=== PATIENT | male | born 1955 | race Caucasian/White ===

== ENCOUNTER 2017-03-17 16:32 | Outpatient (CLI) | payer OTHER ==
--- NOTE | 2017-03-17 20:58 | MRI Report ---
EXAM: MRI CERVICAL SPINE WITHOUT CONTRAST EXAM DATE: 03/17/2017 05:29 PM. CLINICAL HISTORY: CERVICAL DISC DISORDER AT C5-C6 LEVEL WITH RADICUL. Neck and right shoulder and arm pain. COMPARISONS: MRI cervical spine 04/10/2010 TECHNIQUE: Multiplanar, multisequence T1-weighted and fluid-sensitive sequences of the cervical spine without contrast. Other: None. FINDINGS: Neurologic Structures: The visualized posterior fossa structures are unremarkable. No signal abnormal ity in the visualized spinal cord. Alignment: Normal. No scoliosis or spondylolisthesis. Bone Marrow: No gross fractures or bone lesions. No marrow edema. 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 Interspace Levels/Facets: C1-C2: Unremarkable. C2-C3: No significant central canal or neuroforaminal narrowing. C3-C4: Mild diffuse disk bulge, slightly progressed since the prior study. Mild right facet arthropat hy and right-sided uncovertebral spurring. Mild central canal narrowing, slightly progressed. Mild ri ght neuroforaminal narrowing. No left neuroforaminal narrowing. C4-C5: Moderate diffuse disk bulge with superimposed right central disk protrusion. This moderately f lattens the cord with no definite cord signal abnormality. Mild bilateral uncovertebral spurring. Mil i-no-itxaafue bilateral facet arthropathy. Moderate to severe central canal narrowing, slightly progr essed. Mild bilateral neuroforaminal narrowing, slightly progressed. C5-C6: Moderate diffuse disk bulge with superimposed right subarticular/foraminal disk protrusion. Mo derate bilateral facet arthropathy. Zflg-[id number] bilateral uncovertebral spurring. Moderate to se mika central canal narrowing, slightly progressed. Moderate to severe right and mild left neuroforami nal narrowing. The neuroforaminal narrowing is similar to prior study. Recommend correlation with rig ht-sided C6 radicular symptoms. C6-C7: Mild diffuse disk bulge. Moderate bilateral facet arthropathy. Mild central canal narrowing. M oderate bilateral neuroforaminal narrowing. The central canal and the neuroforaminal narrowing have s lightly progressed since the prior study. Recommend correlation for bilateral C7 radicular symptoms. C7-T1: No significant central canal or neuroforaminal narrowing. Musculature: Normal. No edema or fatty atrophy. Other: The paravertebral and prevertebral soft tissues are normal. IMPRESSION: 1. Fljr-sj-diiacuwp multilevel degenerative spondylosis, as detailed above and summarized below. 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 Overall, this velasquez s slightly progressed since the prior study dated 04/10/2010, as detailed above. 2. No cord signal abnormality at any level. No evidence of fracture or bone marrow edema. 3. C3-C4 level demonstrates mild central canal narrowing, slightly progressed. Mild right neuroforami nal narrowing. No left neuroforaminal narrowing. 4. C4-C5 level demonstrates moderate to severe central canal narrowing, slightly progressed. Mild lizeth ateral neuroforaminal narrowing, slightly progressed. 5. C5-C6 level demonstrates moderate to severe central canal narrowing, slightly progressed. Moderate to severe right and mild left neuroforaminal narrowing. The neuroforaminal narrowing is similar to p rior study. Recommend correlation with right-sided C6 radicular symptoms. 6. C6-C7 level demonstrates mild central canal narrowing. Moderate bilateral neuroforaminal narrowing . The central canal and the neuroforaminal narrowing have slightly progressed since the prior study. Recommend correlation for bilateral C7 radicular symptoms. [facility] Referring Provider Line: [phone] SITE ID: [id number]
== END 2017-03-17 16:33 | disposition home or self-care (01) ==
LOC: DI 16:32
PROVIDERS: ATTEND Physician Assistant
DX: M50.31 Other cervical disc degeneration, high cervical region (principal); M47.892 Other spondylosis, cervical region
CPT/HCPCS: 72141

== ENCOUNTER 2017-09-22 09:08 | Outpatient (CLI) | payer OTHER | END 2017-09-22 09:09 | disposition home or self-care (01) | LOC: SC 09:08 | PROVIDERS: ATTEND Specialist | DX: G47.30 Sleep apnea, unspecified (principal); G47.00 Insomnia, unspecified; E66.9 Obesity, unspecified; Z68.31 Body mass index [BMI] 31.0-31.9, adult | CPT/HCPCS: 99205; 99212 ==

== ENCOUNTER 2018-08-14 00:04 | Emergency (ER) | payer OTHER ==
[2018-08-14] MEDS ORDERED: SODIUM CHLORIDE 0.9% 1,000 ML IV ONE (00:32)
[2018-08-14 00:43] LABS: BASOPHILS # (AUTO) 0.1 10^3/uL (0.0-0.1); BASOPHILS % (AUTO) 0.7 %; EOSINOPHILS # (AUTO) 0.2 10^3/uL (0.0-0.7); EOSINOPHILS % (AUTO) 2.1 %; HGB - HEMOGLOBIN 15.8 g/dL (14.0-18.0); LYMPHOCYTES # (AUTO) 2.4 10^3/uL (1.5-3.5); LYMPHOCYTES % (AUTO) 23.7 %; MEAN CORPUSCULAR HEMOGLOBIN 31.4 pg (27.0-31.0); MEAN CORPUSCULAR HGB CONC 35.5 g/dL (32.0-36.0); MEAN CORPUSCULAR VOLUME 88.6 fL (80.0-94.0); MEAN PLATELET VOLUME 7.5 fL (7.4-11.4); MONOCYTES % (AUTO) 10.1 %; NEUTROPHILS # (AUTO) 6.5 10^3/uL (1.5-6.6); NEUTROPHILS % (AUTO) 63.4 %; PLT - PLATELET COUNT 251 10^3/uL (130-450); RED BLOOD COUNT 5.02 10^6/uL (4.70-6.10); RED CELL DISTRIBUTION WIDTH 13.2 % (12.0-15.0); WHITE BLOOD COUNT 10.3 x10^3/uL (4.8-10.8)
[2018-08-14 00:56] LABS: ALBUMIN/GLOBULIN RATIO 1.3 (1.0-2.2); BILIRUBIN,TOTAL 0.5 mg/dL (0.2-1.0); TOTAL PROTEIN 7.1 g/dL (6.7-8.2)
[2018-08-14 00:59] LABS: BILIRUBIN,URINE NEGATIVE (NEGATIVE); GLUCOSE, URINE (UA) >=1000 mg/dL (NEGATIVE); KETONES,URINE (UA) NEGATIVE (NEGATIVE); LEUKOCYTE ESTERASE, URINE NEGATIVE (NEGATIVE); NITRITE,URINE NEGATIVE (NEGATIVE); OCCULT BLOOD,URINE LARGE (NEGATIVE); PH,URINE 5.5 PH (5.0-7.5); PROTEIN,URINE NEGATIVE (NEGATIVE); UROBILINOGEN,URINE 0.2 (NORMAL) E.U./dL (NORMAL)
[2018-08-14 01:05] LABS: CLARITY,URINE CLEAR (CLEAR)
[2018-08-14 01:06] LABS: BACTERIA,URINE None Seen /HPF (None Seen); SQUAMOUS EPITHELIAL CELL,UR NONE SEEN (<= Few)
[2018-08-14] MEDS ORDERED: IOPAMIDOL-300 100 ML VIAL ONE (01:07)
--- NOTE | 2018-08-14 01:17 | ED Physician Documentation ---
PD HPI ABD PAIN - Stated complaint Stated Complaint: LT SIDE PAIN - Chief complaint Chief Complaint: Abd Pain - History obtained from History obtained from: Patient - History of Present Illness Timing - onset: How many hours ago (5) Timing - details: Abrupt onset Quality: Pain Location: Other (left mid abdomen) Radiation: Left flank Associated symptoms: Nausea, Diarrhea (3 days ago.) Similar symptoms before: Has not had sx before - Additional information Additional information: The patient is a 63-year-old male who presents with left-sided abdominal pain that started about 5 hours prior to arrival and has persisted since that time. It was rather rapid in onset. He describes associated nausea, without vomiting. He denies fever but has had chills. He denies dysuria. He reports having diarrhea 3 days ago, but had a normal bowel movement earlier today. He denies history of similar symptoms in the past. Past medical history is significant for insulin-dependent diabetes. He started Trulicity 1 month ago, and thinks that his episodes of diarrhea are related to that medication. Review of Systems Constitutional: reports: Chills Nose: denies: Congestion Throat: denies: Sore throat Cardiac: denies: Chest pain / pressure Respiratory: denies: Dyspnea, Cough GI: reports: Abdominal Pain, Nausea, Diarrhea (three days ago.). denies: Vomiting : denies: Dysuria Skin: denies: Rash Musculoskeletal: reports: Back pain (mild left flank pain) Neurologic: denies: Focal weakness, Numbness, Headache PD PAST MEDICAL HISTORY - Past Medical History Cardiovascular: Hypertension, High cholesterol Respiratory: None Endocrine/Autoimmune: Type 2 diabetes GI: Colon polyps : Benign prostate hypertrophy, Frequency HEENT: Other Psych: None Musculoskeletal: Gout Derm: None - Past Surgical History General: Cholecystectomy, Colonoscopy Ortho: Rotator cuff repair - Present Medications Home Medications: Ambulatory Orders Medication Instructions Recorded Confirmed Aspirin [Pancho Chewable] 81 mg PO DAILY 12/17/15 12/17/15 Atorvastatin [Lipitor] 20 mg PO DAILY 12/17/15 12/18/15 Finasteride 5 mg PO DAILY 12/17/15 12/18/15 Lisinopril [Prinivil] 5 mg PO DAILY 12/17/15 12/18/15 Tamsulosin [Flomax] 0.4 mg PO DAILY 12/17/15 12/18/15 metFORMIN [Glucophage] 850 mg PO BIDWM 12/17/15 12/18/15 Oxycodone HCl/Acetaminophen 1 - 2 each PO Q6H PRN #14 tablet 08/14/18 [Percocet 5-325 mg Tablet] Tamsulosin [Flomax] 0.4 mg PO DAILY #7 capsule 08/14/18 - Allergies Allergies/Adverse Reactions: Allergies Allergy/AdvReac Type Severity Reaction Status Date / Time No Known Drug Allergies Allergy Verified 08/14/18 00:08 PD ED PE NORMAL - Vitals Vital signs reviewed: Yes (Initially hypertensive.) - General General: Alert and oriented X 3, Well developed/nourished - HEENT HEENT: Atraumatic, Moist mucous membranes, Pharynx benign - Neck Neck: Supple, no meningeal sign, No adenopathy - Cardiac Cardiac: RRR, No murmur - Respiratory Respiratory: No respiratory distress, Clear bilaterally - Abdomen Abdomen: Normal bowel sounds, Soft, No organomegaly, Other (Left mid abdominal tenderness to palpation, without rebound or guarding.) - Back Back: No CVA TTP, No spinal TTP - Derm Derm: No rash - Extremities Extremities: No edema, No calf tenderness / cord - Neuro Neuro: Alert and oriented X 3, Normal speech Results - Vitals Vitals: Vital Signs - 24 hr 08/14/18 08/14/18 00:08 02:23 Temperature 36.2 C L Heart Rate 88 85 Respiratory 20 16 Rate Blood Pressure 148/101 H 123/90 H O2 Saturation 97 94 Oxygen O2 Source Room air - Labs Labs: Laboratory Tests 08/14/18 08/14/18 08/14/18 00:25 00:40 00:40 WBC 10.3 RBC 5.02 Hgb 15.8 Hct 44.5 MCV 88.6 MCH 31.4 H MCHC 35.5 RDW 13.2 Plt Count 251 MPV 7.5 Neut # (Auto) 6.5 Lymph # (Auto) 2.4 [place] # (Auto) 1.0 Eos # (Auto) 0.2 Baso # (Auto) 0.1 Absolute Nucleated RBC 0.00 Nucleated RBC % 0.0 Sodium 134 L Potassium 3.7 Chloride 98 L Carbon Dioxide 27 Anion Gap 9.0 BUN 22 H Creatinine 1.0 Estimated GFR (MDRD) 76 L Glucose 295 H POC Whole Bld Glucose 279 H Calcium 9.0 Total Bilirubin 0.5 AST 22 ALT 32 Alkaline Phosphatase 69 Total Protein 7.1 Albumin 4.0 Globulin 3.1 Albumin/Globulin Ratio 1.3 Lipase 26 Urine Color Urine Clarity Urine pH Ur Specific [place] Urine Protein Urine Glucose (UA) Urine Ketones Urine Occult Blood Urine Nitrite Urine Bilirubin Urine Urobilinogen Ur Leukocyte Esterase Urine RBC Urine WBC Ur Squamous Epith Cells Urine Bacteria Ur Microscopic Review Urine Culture Comments 08/14/18 00:50 WBC RBC Hgb Hct MCV MCH MCHC RDW Plt Count MPV Neut # (Auto) Lymph # (Auto) [place] # (Auto) Eos # (Auto) Baso # (Auto) Absolute Nucleated RBC Nucleated RBC % Sodium Potassium Chloride Carbon Dioxide Anion Gap BUN Creatinine Estimated GFR (MDRD) Glucose POC Whole Bld Glucose Calcium Total Bilirubin AST ALT Alkaline Phosphatase Total Protein Albumin Globulin Albumin/Globulin Ratio Lipase Urine Color YELLOW Urine Clarity CLEAR Urine pH 5.5 Ur Specific [place] 1.025 Urine Protein NEGATIVE Urine Glucose (UA) >=1000 H Urine Ketones NEGATIVE Urine Occult Blood LARGE H Urine Nitrite NEGATIVE Urine Bilirubin NEGATIVE Urine Urobilinogen 0.2 (NORMAL) Ur Leukocyte Esterase NEGATIVE Urine RBC 11-25 H Urine WBC 0-3 Ur Squamous Epith Cells NONE SEEN Urine Bacteria None Seen Ur Microscopic Review INDICATED Urine Culture Comments NOT INDICATED - Rads (name of study) CT abd/pelvis w/o Radiology: Prelim report reviewed, EMP read contemporaneously, See rad report (1) Moderately obstructing 4 x 4 mm stone in the distal left ureter, about 1 cm above the ureteral 2) There are 2 nonobstructing left renal stones measuring up to 4 x 4 mm. 3) Fatty liver.) PD MEDICAL DECISION MAKING - ED course Complexity details: reviewed results, re-evaluated patient, considered differential, d/w patient ED course: The patient's presentation is most consistent with left ureteral stone with renal colic. CT scan of the abdomen and pelvis reveals a 4 mm stone in the left distal ureter. There is no clinical evidence to suggest pyelonephritis. Treatment in the emergency department included administration of normal saline IV. He declined medication for pain or nausea. He is being discharged with prescriptions for Flomax and for Percocet, 14 tablets. I discussed with him the expected course of illness, symptomatic treatment and outpatient follow-up, as well as potentially worrisome signs or symptoms that should prompt reevaluation in the emergency department. Departure - Departure Disposition: 01 Home, Self Care Clinical Impression: Left ureteral stone Condition: Stable Instructions: ED Stone Renal W Colic Follow-Up: ANIL KAMINSKI [Primary Care Provider] - Prescriptions: Oxycodone HCl/Acetaminophen [Percocet 5-325 mg Tablet] 1 - 2 each PO Q6H PRN #14 tablet PRN Reason: pain Tamsulosin [Flomax] 0.4 mg PO DAILY #7 capsule Comments: Drink plenty of fluids. Take Flomax daily as prescribed. Take ibuprofen, up to 800 mg 3 times daily for its anti-inflammatory effect. You can use Percocet as prescribed if needed for pain. Follow-up with your primary physician within 1 week. Call to schedule an appointment. Return to the emergency department if you develop increasing abdominal pain despite the pain medication, fever, persistent vomiting, or otherwise worsening symptoms. Discharge Date/Time: 08/14/18 02:24
--- NOTE | 2018-08-14 01:56 | CT Report ---
Reason: Left flank pain with hematuria Procedure Date: 08/14/2018 Accession Number: [id number] / [id number] Procedure: CT - Abdomen/Pelvis W/O CPT Code: FULL RESULT: EXAM: CT ABDOMEN AND PELVIS (CT KUB) EXAM DATE: 08/14/2018 01:40 AM. CLINICAL HISTORY: Left flank pain with hematuria. COMPARISONS: None. TECHNIQUE: Routine axial helical CT imaging was performed through the abdomen and pelvis without IV contrast. Reconstructions: Coronal and sagittal. In accordance with CT protocol optimization, one or more of the following dose reduction techniques were utilized for this exam: automated exposure control, adjustment of mA and/or KV based on patient size, or use of iterative reconstructive technique. FINDINGS: Lung Bases: Bibasilar atelectasis. Right Kidney/Ureter: No stones, hydronephrosis, or hydroureter. No perinephric fat stranding. Left Kidney/Ureter: There are 2 nonobstructing left renal stones measuring up to 4 x 4 mm. Moderately obstructing stone is seen in the distal ureter about 1 cm above the ureterovesical junction, measuring 4 x 4 mm. Other Solid Organs: Fatty liver. Spleen, pancreas, and adrenals show no focal abnormalities on this noncontrast examination. Gallbladder/Bile Ducts: Status post cholecystectomy. Peritoneal Cavity: No bowel obstruction seen. No diverticulitis. No free air or free fluid. Normal sized mesenteric lymph nodes. Appendix appears normal. Pelvic Organs: No bladder stones or wall thickening. Noncontrast images of the visualized pelvic organs are unremarkable. Vasculature: Mild atherosclerosis. No aortic aneurysm. Other: None. IMPRESSION: 1. Moderately obstructing 4 x 4 mm stone in the distal left ureter about 1 cm above the ureterovesical junction. 2. There are 2 nonobstructing left renal stones measuring up to 4 x 4 mm. 3. Fatty liver. [facility]
[2018-08-14 02:24] VITALS: BP 123/90
== END 2018-08-14 02:24 | disposition home or self-care (01) ==
LOC: ED 00:04
DX: N20.2 Calculus of kidney with calculus of ureter (principal); E11.9 Type 2 diabetes mellitus without complications; I10 Essential (primary) hypertension; Z79.82 Long term (current) use of aspirin; Z79.84 Long term (current) use of oral hypoglycemic drugs
CPT/HCPCS: 36415; 74176; 80053; 81001; 81003; 83690; 85025; 87086; 96360; 96361; 99283; 99284

== ENCOUNTER 2019-10-01 08:26 | Outpatient (CLI) | payer OTHER ==
[2019-10-01 09:07] VITALS: BP 120/70
--- NOTE | 2019-10-01 09:07 | SLEEP CARE CONSULTATION ---
Information from patient questionnaire entered by Angelique Moralez. I have reviewed and concur with the information entered by Angelique Moralez. This document represents the service I personally performed and the decisions made by me, Yoselin Benjamin, RN, MSN, [employer]. History of Present Illness Reason for Visit: New patient, Re-establish care, Other (last seen 2017) Chief Complaint: reports: Insomnia, Unrefreshed sleep, Snoring, Excessive daytime sleepiness, Observed pauses in breathing, Fatigue, Frequent awakenings at night Duration of Symptoms: many years Usual bedtime: 9-11pm Time it takes to fall asleep: 15-20 minutes Snores at night: Yes Observed to quit breathing while asleep: Yes Sleeps alone due to snoring: Yes Number of times waking at night: 2 Reasons for waking at night: reports: Bathroom, Other (rn medicare of son with aspergerns to check on if noises in night). denies: Choking, Snoring, Gasping for air, Pain Toss, Turn, or Twitch while sleeping: Yes Recalls having dreams: Yes (sometimes) Usually gets out of bed at: 5:30am Feels refreshed in the morning: No Morning headache: No Sleepy or fatigued during the day: Yes (sometimes) Ever fallen asleep while driving: Yes (brief closing of eyes, no accident, last occurred a month ago) Takes day naps: No Dreams during day naps: No Prior sleep studies: No - Parasomnia Symptoms Ever been unable to move upon waking from sleep: No Walks in sleep: No Talks in sleep: No Ever acted out dreams in sleep: Yes (many years ago from nightmares) Ever felt weak in the knees when startled or emotional: No Bothered by creepy, crawly, restless sensations in legs: Yes (diabetic neuropathy) Problems with memory or concentration: No Subjective Initial [place] Sleepiness Scale score: 8 Current [place] Sleepiness Scale score: 4 Past Medical History Past Medical History: reports: Hypertension, Diabetes (TURP, cholecystectomy, tonsillectomy. 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 Patient is and lives in [place]. Have you smoked in the past 12 months: No (never smoked ) Alcohol use: No Caffeine use: Yes Caffeine amount and frequency: 4- 5 diet caffienated sodas a day Family History Family history of sleep disordered breathing: Yes Family Hx Sleep Apnea: Father: Snoring Allergies and Home Medications Known drug allergies: No Home medication list reviewed: Yes Allergy and home medication list: lisinopril daily atorvastain daily Lantus insulin daily Metformin daily myrbetriq daily Review of Systems Cardiovascular: reports: high blood pressure. denies: palpitations, chest pain, irregular heart rate or pulse, leg or foot swelling, have to sleep sitting up Respiratory: denies: shortness of breath, wheeze, sputum production, chronic cough Gastrointestinal: denies: heartburn, difficulty swallowing, nausea, vomitting, diarrhea, abdominal pain Urinary: denies: incontinence, frequency, urgency, impotence Neurological: denies: headaches, seizure, head trauma, disorientation, speech dysfunction, gait or balance problems, fainting or unconsciousness Psychiatric: reports: claustrophobia (MRI ). denies: Attention Deficit Hyperactivity, anxiety, depression, mood disorder, other Ear/Nose/Throat: reports: nasal congestion, sinus problems, dry mouth/throat (sometimes ), tonsillectomy, wisdom teeth removed, other (no surgery to nose mouth or throat). denies: nose bleeds, hoarseness, injury to nose Endocrine: denies: thyroid disease, history of goiter, sluggishness, too hot or cold, excessive thirst, increased appetite, increased urination, unexplained weakness Musculoskeletal: denies: joint pain, neck pain, back pain, joint swelling, muscle pain or cramping, mobility problems Immunologic: denies: sneezing, rash, itching, allergies to food or environment, other Physical Exam Blood Pressure: 120/70 Cuff size: regular Heart Rate: 86 O2 Saturation: 97 Height: 6 ft 1.75 in Weight: 238 lb 6.4 oz Body Mass Index: 30.8 BMI Classification: Obesity Class 1 HEENT: No craniofacial malformation Nostrils: partially obstructed (left due to deviated septum and nasal congestion) Turbinates: normal Septum: deviated left Mouth and throat: narrow oropharynx Soft palate: long Hard palate: normal Uvula: normal Uvula visualization: 25% Mallampati Class III Tongue: normal in size Tonsils: absent bilaterally Chin and jaw: Overjet Neck: normal w/o lymphadenopathy or thyromegaly Heart: regular rate and rhythm Lungs: clear bilaterally Abdomen: soft Extremities: no edema or clubbing Neurologic: intact (grossly intact) Impression and Plan 1. Suspected Obstructive Sleep Apnea-Hypopnea Syndrome, as suggested by a history of loud and irregular snoring, observed cessation of breath while asleep, frequent awakening during the night, unrefreshed sleep, and intermittent excessive daytime sleepiness. Narrow oropharynx and obesity are common predisposing factors for obstructive sleep apnea-hypopnea syndrome. His overjet could also increase his risk of obstructive sleep apnea. Essential hypertension could also be caused by untreated sleep apnea. As noted in history, patient was seen in consultation in 2017 and a sleep study ordered but not completed. 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 A message and letter were sent to patient to reschedule but he does not recall these. Patient 's symptoms continue and he would like to pursue further evaluation. I recommend proceeding to polysomnography to confirm the diagnosis and to assess severity. If the patient has significant sleep disordered breathing, a manual CPAP titration study will also be performed to find the optimal treatment pressure. I informed the patient of what the sleep studies involve and after some discussion, obtained agreement to proceed. The pathophysiology of obstructive sleep apnea-hypopnea syndrome was discussed with the patient and health risks of cardiovascular and cerebrovascular disease if not treated. AASM brochure for obstructive sleep apnea-hypopnea syndrome given and reviewed. Risks of drowsy driving discussed in detail and patient advised to avoid long distance driving and to cable puller at the first sign of drowsiness. Patient agreed to plan. * Schedule polysomnography +- manual CPAP titration study * Avoid long distance driving or driving when feeling sleepy. * Avoid alcohol, sedative and muscle relaxant around bedtime. * Attempt to lose weight. * Review instructions provided by trained office staff on how to prepare for the sleep study. * Return for follow-up after sleep study completed. I spent 100% of this 27 visit face to face with the patient with greater than 50% of this was spent time counseling the patient and coordination of care.
== END 2019-10-01 08:27 | disposition home or self-care (01) ==
LOC: SC 08:26
PROVIDERS: ATTEND Nurse Practitioner Family
DX: R06.83 Snoring (principal); R06.81 Apnea, not elsewhere classified; G47.8 Other sleep disorders; G47.10 Hypersomnia, unspecified; E66.9 Obesity, unspecified; Z68.30 Body mass index [BMI] 30.0-30.9, adult
CPT/HCPCS: 99212; 99214

== ENCOUNTER 2019-10-16 04:06 | Emergency (ER) | payer OTHER ==
[2019-10-16 04:16] VITALS: BP 148/95
[2019-10-16] MEDS ORDERED: DEXAMETHASONE 10 MG/ML VIAL PO STA (04:31)
[2019-10-16] MEDS ORDERED: CHERRY SYRUP 10 ML UDC PO ONE (04:31)
[2019-10-16] MEDS ORDERED: KETOROLAC 60 MG/2 ML VIAL IM STA (04:31)
--- NOTE | 2019-10-16 04:34 | ED Physician Documentation ---
PD HPI UPPER EXT INJURY - Stated complaint Stated Complaint: RT ARM PX - Chief complaint Chief Complaint: Ext Problem - History obtained from History obtained from: Patient - History of Present Illness Location: Right, Arm Type of injury: Other (pulling) Where injury occurred: Home Timing - onset: How many days ago (3) Timing - duration: Days (3) Timing - details: Abrupt onset, Still present Improved by: Rest, Immobilization Worsened by: Moving, Palpating Associated symptoms: Numbness. No: Weakness, Tingling, Swelling, Discolored Contributing factors: No: Anticoagulated, Prior ortho surgery Similar symptoms before: Diagnosis (cervical radiculopathy) Recently seen: Not recently seen - Additonal information Additional information: Previously well 64-year-old gentleman with a history of type 2 diabetes hypercholesterolemia and hypertension was assisting his [id number] up and strained his right arm. He complains of pain through the right shoulder and up into the neck on the right side with some numbness to the dorsum of the right hand. He is having some trouble lifting his arm secondary to pain in the arm and he is able to hold the arm in abduction. He states he is had this happen to him previously required some physical therapy. Review of Systems Constitutional: denies: Fever, Chills, Myalgias Eyes: denies: Decreased vision Ears: denies: Ear pain Nose: denies: Rhinorrhea / runny nose, Congestion Throat: denies: Dental pain / toothache Cardiac: denies: Chest pain / pressure Respiratory: denies: Dyspnea, Cough GI: denies: Abdominal Pain, Vomiting : denies: Dysuria, Frequency Musculoskeletal: reports: Neck pain, Extremity pain. denies: Back pain Neurologic: reports: Numbness. denies: Generalized weakness, Focal weakness PD PAST MEDICAL HISTORY - Past Medical History Cardiovascular: Hypertension, High cholesterol Respiratory: None Endocrine/Autoimmune: Type 2 diabetes GI: Colon polyps : Benign prostate hypertrophy, Frequency HEENT: Other Psych: None Musculoskeletal: Gout Derm: None - Past Surgical History General: Cholecystectomy, Colonoscopy Ortho: Rotator cuff repair - Present Medications Home Medications: Ambulatory Orders Medication Instructions Recorded Confirmed Aspirin [Pancho Chewable] 81 mg PO DAILY 12/17/15 10/16/19 Atorvastatin [Lipitor] 20 mg PO DAILY 12/17/15 10/16/19 Finasteride 5 mg PO DAILY 12/17/15 10/16/19 Lisinopril [Prinivil] 5 mg PO DAILY 12/17/15 10/16/19 metFORMIN [Glucophage] 850 mg PO BIDWM 12/17/15 10/16/19 Cyclobenzaprine [Flexeril] 10 mg PO TID PRN #20 tablet 10/16/19 Exenatide Microspheres [Bydureon 10/16/19 Pen] Hydrocodone/Acetaminophen 1 - 2 each PO Q6H PRN #14 tablet 10/16/19 [Hydrocodon-Acetaminophen 5-325] Insulin Glargine [Lantus Solostar] 55 units SUBQ DAILY PM 10/16/19 10/16/19 Mirabegron [Myrbetriq] 25 mg PO 10/16/19 - Allergies Allergies/Adverse Reactions: Allergies Allergy/AdvReac Type Severity Reaction Status Date / Time No Known Drug Allergies Allergy Verified 08/14/18 00:08 - Social History Does the pt smoke?: No Smoking Status: Never smoker Does the pt drink ETOH?: No Does the pt have substance abuse?: No - Immunizations Immunizations are current?: Yes - POLST Patient has POLST: No PD ED PE NORMAL - Vitals Vital signs reviewed: Yes (hypertensive ) - General General: Alert and oriented X 3, No acute distress, Well developed/nourished - HEENT HEENT: Atraumatic, PERRL, EOMI - Neck Neck: Supple, no meningeal sign, No bony TTP, Other (There is some paraspinous muscle tenderness to the area of C5. There is palpable pain into the trapezius over the insertion of the spinal accessory. ) - Respiratory Respiratory: No respiratory distress - Derm Derm: Normal color, Warm and dry, No rash - Extremities Extremities: No deformity, No edema, Other (There is point tenderness to the anterior deltoid and pain with movement of the arm there is pain with both passive and active movement more pain with active movement and the patient is able to hold the arm in extension. He is able to hold the arm in abduction. There is pain at the insertion of the biceps tendon proximally. Distal neurovascular components are intact the patient has some subjective numbness over the dorsum of the hand.) - Neuro Neuro: Alert and oriented X 3, roller print tender 2-12 intact, No motor deficit Eye Opening: Spontaneous Motor: Obeys Commands Verbal: Oriented GCS Score: 15 - Psych Psych: Normal mood, Normal affect Results - Vitals Vitals: Vital Signs - 24 hr 10/16/19 04:14 Temperature 36.1 C L Heart Rate 84 Respiratory 16 Rate Blood Pressure 148/95 H O2 Saturation 97 Oxygen O2 Source Room air PD MEDICAL DECISION MAKING - ED course Complexity details: reviewed old records, re-evaluated patient, considered differential, d/w patient ED course: 64-year-old male with pain radiating from his neck down to his hand and decreased use of his right arm secondary to pain in the upper arm appears to have strained his arm he may, or may not have some component of cervical radiculopathy. He feels certain this is similar to what he had previously with cervical radiculopathy and he is treated with dexamethasone 10 mg orally and Toradol [address] will place him on some hydrocodone and Flexeril and have him follow-up with his primary for further evaluation as needed. Departure - Departure Disposition: 01 Home, Self Care Clinical Impression: Cervical radiculopathy Strain of right upper arm Qualifiers: Encounter type: initial encounter Qualified Code(s): S46.911A - Strain of unspecified muscle, fascia and tendon at shoulder and upper arm level, right arm, initial encounter Condition: Stable Instructions: ED Cervical Radiculopathy, ED Strain Muscle Ext Follow-Up: MARK Renee [Provider Group] Prescriptions: Cyclobenzaprine [Flexeril] 10 mg PO TID PRN #20 tablet PRN Reason: Spasms Hydrocodone/Acetaminophen [Hydrocodon-Acetaminophen 5-325] 1 - 2 each PO Q6H PRN #14 tablet PRN Reason: pain
== END 2019-10-16 04:45 | disposition home or self-care (01) ==
LOC: ED 04:06
DX: M54.12 Radiculopathy, cervical region (principal); S46.911A Strain of unspecified muscle, fascia and tendon at shoulder and upper arm level, right arm, initial encounter; X50.0XXA Overexertion from strenuous movement or load, initial encounter; Y93.F2 Activity, caregiving, lifting; Y92.009 Unspecified place in unspecified non-institutional (private) residence as the place of occurrence of the external cause; I10 Essential (primary) hypertension; E11.9 Type 2 diabetes mellitus without complications; Z79.4 Long term (current) use of insulin
CPT/HCPCS: 96372; 99283; 99284; A9270

== ENCOUNTER 2019-10-20 01:19 | Emergency (ER) | payer OTHER ==
--- NOTE | 2019-10-20 01:51 | ED Physician Documentation ---
History of Present Illness - Stated complaint Stated Complaint: R ARM PAIN - Chief complaint Chief Complaint: Ext Problem - History obtained from History obtained from: Patient - History of Present Illness Timing: How many days ago (4-5) Pain level now: 6 Improved by: rest Worsened by: movement involving right shoulder, turning neck - Additonal information Additional information: c/o 4-5 days of RUE pain. no definite injury, although he thinks it might be related to when he caught his father to stop him from falling several days ago. c/o pain right neck that radiates down RUE to hand. he says he has had similar symptoms before diagnosed as cervical radiculopathy. he also was T+R few days ago from this ED for these symptoms, had good symptomatic relief with decadron and toradol. however, pain gradually returned and worsened and is unrelieved with the prescribed flexeril and vicodin Review of Systems Constitutional: reports: Reviewed and negative Cardiac: denies: Chest pain / pressure Musculoskeletal: reports: Neck pain, Extremity pain. denies: Extremity swelling, Joint swelling Neurologic: denies: Focal weakness, Numbness PD PAST MEDICAL HISTORY - Past Medical History Cardiovascular: Hypertension, High cholesterol Respiratory: None Endocrine/Autoimmune: Type 2 diabetes GI: Colon polyps : Benign prostate hypertrophy, Frequency HEENT: Other Psych: None Musculoskeletal: Gout Derm: None - Past Surgical History Past Surgical History: Yes General: Cholecystectomy, Colonoscopy Ortho: Rotator cuff repair - Present Medications Home Medications: Ambulatory Orders Medication Instructions Recorded Confirmed Aspirin [Pancho Chewable] 81 mg PO DAILY 12/17/15 10/16/19 Atorvastatin [Lipitor] 20 mg PO DAILY 12/17/15 10/16/19 Finasteride 5 mg PO DAILY 12/17/15 10/16/19 Lisinopril [Prinivil] 5 mg PO DAILY 12/17/15 10/16/19 metFORMIN [Glucophage] 850 mg PO BIDWM 12/17/15 10/16/19 Cyclobenzaprine [Flexeril] 10 mg PO TID PRN #20 tablet 10/16/19 Exenatide Microspheres [Bydureon 10/16/19 Pen] Hydrocodone/Acetaminophen 1 - 2 each PO Q6H PRN #14 tablet 10/16/19 [Hydrocodon-Acetaminophen 5-325] Insulin Glargine [Lantus Solostar] 55 units SUBQ DAILY PM 10/16/19 10/16/19 Mirabegron [Myrbetriq] 25 mg PO 10/16/19 Oxycodone HCl/Acetaminophen 1 - 2 each PO Q6H PRN #14 tablet 10/20/19 [Percocet 5-325 mg Tablet] diazePAM [Valium] 5 - 10 mg PO TID PRN #15 tablet 10/20/19 predniSONE [Prednisone] 40 mg PO DAILY 3 Days #6 tablet 10/20/19 - Allergies Allergies/Adverse Reactions: Allergies Allergy/AdvReac Type Severity Reaction Status Date / Time No Known Drug Allergies Allergy Verified 10/20/19 01:29 - Social History Does the pt smoke?: No Smoking Status: Never smoker Does the pt drink ETOH?: No Does the pt have substance abuse?: No - Immunizations Immunizations are current?: Yes - POLST Patient has POLST: No PD ED PE NORMAL - Vitals Vital signs reviewed: Yes - General General: Alert and oriented X 3, No acute distress (NAD at rest with RUE in adduction, but obvious painful discomfort with movement away from this position (of RUE)), Well developed/nourished - Neck Neck: Supple, no meningeal sign, No bony TTP - Respiratory Respiratory: No respiratory distress, Clear bilaterally - Back Back: No spinal TTP - Derm Derm: No rash - Extremities Extremities: No deformity, No tenderness to palpate, No edema - Neuro Neuro: No motor deficit, No sensory deficit PD ED PE EXPANDED - Extremities Extremities: Tenderness (mild TTP lateral aspect of right shoulder as well as anterior aspect at AC joint), Limited ROM Results - Vitals Vitals: Oxygen O2 Source Room air PD MEDICAL DECISION MAKING - ED course Complexity details: reviewed old records, considered differential, d/w patient ED course: we discussed testing, particularly xrays to assess for calcific tendinits or pathologic fracture. these are not likely diagnoses and would not change emergent management of the discomfort; additionally, he has had these symptoms before (few years ago) with diagnosis of cervical radiculopathy, making alternative diagnoses less likely. we agreed testing can be deferred until outpatient f/u or if symptoms worsen (in which case he can return to ED) Departure - Departure Disposition: 01 Home, Self Care Clinical Impression: Cervical radiculopathy Condition: Good Instructions: ED Cervical Radiculopathy Follow-Up: KEHINDE MARTIN ARNP [Primary Care Provider] - (Call to arrange for next available appointment) Prescriptions: diazePAM [Valium] 5 - 10 mg PO TID PRN #15 tablet PRN Reason: Spasms Oxycodone HCl/Acetaminophen [Percocet 5-325 mg Tablet] 1 - 2 each PO Q6H PRN #14 tablet PRN Reason: pain predniSONE [Prednisone] 40 mg PO DAILY 3 Days #6 tablet Comments: You can try the oxycodone/acetaminophen IN PLACE OF the hydrocodone/acetaminophen, and the diazepam IN PLACE OF the cyclobenzaprine. Discharge Date/Time: 10/20/19 03:25
[2019-10-20] MEDS ORDERED: DEXAMETHASONE 10 MG/ML VIAL PO STA (02:46)
[2019-10-20] MEDS ORDERED: KETOROLAC 60 MG/2 ML VIAL IM STA (02:46)
[2019-10-20] MEDS ORDERED: CHERRY SYRUP 10 ML UDC PO ONE (02:46)
[2019-10-20] MEDS ORDERED: oxyCODONE/ACET 5/325 Prepack 4 PO STA (02:47)
[2019-10-20 03:16] VITALS: BP 150/94
== END 2019-10-20 03:25 | disposition home or self-care (01) ==
LOC: ED 01:19
DX: M54.12 Radiculopathy, cervical region (principal); I10 Essential (primary) hypertension; E11.9 Type 2 diabetes mellitus without complications; Z79.4 Long term (current) use of insulin; Z79.82 Long term (current) use of aspirin
CPT/HCPCS: 96372; 99283; 99284; A9270

== ENCOUNTER 2019-10-24 00:31 | Emergency (ER) | payer OTHER ==
[2019-10-24] MEDS ORDERED: TRIAMCINOLONE 40 MG/ML VIAL IM STA (01:36)
[2019-10-24] MEDS ORDERED: ACETAMINOPHEN 325 MG TABLET PO STA (01:36)
[2019-10-24] MEDS ORDERED: LIDOCAINE 2% 10 ML MDV SUBQ STA (01:36)
[2019-10-24] MEDS ORDERED: KETOROLAC 60 MG/2 ML VIAL IM STA (01:36)
--- NOTE | 2019-10-24 02:06 | ED Physician Documentation ---
PD HPI UPPER EXT INJURY - Stated complaint Stated Complaint: ARM PX - Chief complaint Chief Complaint: Heent - History obtained from History obtained from: Patient - History of Present Illness Location: Right, Shoulder, Other (neck) Type of injury: Twist (he says he caught his father from falling and had a pull/twist of the shoulder and neck muscles. Has had pain in right side neck and shoulder girdle develop after that and continue. Improved with Toradol in ER and Rx meds somewhat but hurts again after a day or so. PO meds not helping.). No: Fall Timing - onset: How many days ago (10) Timing - duration: Days (10) Timing - details: Gradual onset, Still present, Waxing and waning Improved by: No: Rest (still hurts when resting arm, but feels best of it when just lying down with arm at side.) Worsened by: Moving, Palpating Associated symptoms: No: Weakness, Numbness, Swelling Similar symptoms before: Diagnosis (he says feels similar to "pinched nerve" in neck but does have pain with ROM of the shoulder now as well.) Recently seen: Emergency Dept (seen in ER twice with Toradol and steroids as well as oxycodone Rx, 5 mg tabs. has appt with PMD in couple days.) Review of Systems Constitutional: denies: Fever, Chills, Myalgias Nose: denies: Rhinorrhea / runny nose, Congestion Throat: denies: Sore throat Respiratory: denies: Cough Skin: denies: Rash, Lesions Musculoskeletal: reports: Neck pain, Joint pain (right shoulder) Neurologic: denies: Focal weakness, Numbness PD PAST MEDICAL HISTORY - Past Medical History Past Medical History: Yes Cardiovascular: Hypertension, High cholesterol Respiratory: None Neuro: None Endocrine/Autoimmune: Type 2 diabetes GI: Colon polyps : Benign prostate hypertrophy, Frequency HEENT: Other Psych: None Musculoskeletal: Gout Derm: None - Past Surgical History Past Surgical History: Yes General: Cholecystectomy, Colonoscopy Ortho: Rotator cuff repair - Present Medications Home Medications: Ambulatory Orders Medication Instructions Recorded Confirmed Aspirin [Pancho Chewable] 81 mg PO DAILY 12/17/15 10/16/19 Atorvastatin [Lipitor] 20 mg PO DAILY 12/17/15 10/16/19 Finasteride 5 mg PO DAILY 12/17/15 10/16/19 Lisinopril [Prinivil] 5 mg PO DAILY 12/17/15 10/16/19 metFORMIN [Glucophage] 850 mg PO BIDWM 12/17/15 10/16/19 Cyclobenzaprine [Flexeril] 10 mg PO TID PRN #20 tablet 10/16/19 Exenatide Microspheres [Bydureon 10/16/19 Pen] Hydrocodone/Acetaminophen 1 - 2 each PO Q6H PRN #14 tablet 10/16/19 [Hydrocodon-Acetaminophen 5-325] Insulin Glargine [Lantus Solostar] 55 units SUBQ DAILY PM 10/16/19 10/16/19 Mirabegron [Myrbetriq] 25 mg PO 10/16/19 Oxycodone HCl/Acetaminophen 1 - 2 each PO Q6H PRN #14 tablet 10/20/19 [Percocet 5-325 mg Tablet] diazePAM [Valium] 5 - 10 mg PO TID PRN #15 tablet 10/20/19 predniSONE [Prednisone] 40 mg PO DAILY 3 Days #6 tablet 10/20/19 Naproxen 375 mg PO BID #20 tablet 10/24/19 Oxycodone HCl/Acetaminophen 1 each PO Q4H PRN #20 tablet 10/24/19 [Percocet 7.5-325 mg Tablet] - Allergies Allergies/Adverse Reactions: Allergies Allergy/AdvReac Type Severity Reaction Status Date / Time No Known Drug Allergies Allergy Verified 10/24/19 00:49 - Social History Does the pt smoke?: No Smoking Status: Never smoker Does the pt drink ETOH?: No Does the pt have substance abuse?: No - Immunizations Immunizations are current?: Yes - POLST Patient has POLST: No PD ED PE NORMAL - Vitals Vital signs reviewed: Yes - General General: Alert and oriented X 3, No acute distress, Well developed/nourished - Neck Neck: Supple, no meningeal sign, No bony TTP (some tender in muscles adjacent to upper thoracic, about level of T2-3, without rash nor sores. ), No adenopathy - Cardiac Cardiac: RRR, No murmur - Respiratory Respiratory: Clear bilaterally - Derm Derm: Normal color, Warm and dry, No rash - Extremities Extremities: Other (right shoulder tender anteriorly. Limited ROM due to pain at shoulder - mostly abduction, extension and internal/external rotation. ) - Neuro Neuro: Alert and oriented X 3, No motor deficit, No sensory deficit, Normal speech Results - Vitals Vitals: Vital Signs - 24 hr 10/24/19 10/24/19 10/24/19 00:41 01:52 02:40 Temperature 36.4 C L Heart Rate 94 81 Respiratory 17 17 17 Rate Blood Pressure 149/98 H 134/87 H O2 Saturation 96 99 Oxygen O2 Source Room air PD MEDICAL DECISION MAKING - ED course Complexity details: reviewed old records, considered differential (tried local injection at anterior shoulder muscles at point of tenderness. Sounds like some rotator cuff and could be nerve pain too, but is tender in shoulder and pain on ROM. ), d/w patient Departure - Departure Disposition: Home, Self Care Clinical Impression: Cervical radiculopathy Right shoulder strain Qualifiers: Encounter type: subsequent encounter Qualified Code(s): S46.911D - Strain of unspecified muscle, fascia and tendon at shoulder and upper arm level, right arm, subsequent encounter Condition: Stable Record reviewed to determine appropriate education?: Yes Instructions: ED Cervical Radiculopathy, ED Tendinitis Rotator Cuff Follow-Up: KEHINDE MARTIN ARNP [Primary Care Provider] - Prescriptions: Naproxen 375 mg PO BID #20 tablet Oxycodone HCl/Acetaminophen [Percocet 7.5-325 mg Tablet] 1 each PO Q4H PRN #20 tablet PRN Reason: Pain Comments: Use the sling periodically to reduce strain on the shoulder and try to improve that portion of the injury. Gentle range of motion of the shoulder several times a day however so does not stiffen up on you. When rested, you can have the arm in the best position of comfort. Use some anti-inflammatories such as naproxen or ibuprofen twice daily. Add the oxycodone every 4-6 hours if needed for pain. I did a local injection with triamcinolone and lidocaine in the right anterior shoulder to try to help with some presumed rotator cuff tendinitis. Follow-up with your primary care regarding physical therapy for the shoulder and neck as there can be some element of "pinched nerve" as well. Discharge Date/Time: 10/24/19 02:46
[2019-10-24 02:46] VITALS: BP 134/87
== END 2019-10-24 02:46 | disposition home or self-care (01) ==
LOC: ED 00:31
DX: M54.12 Radiculopathy, cervical region (principal); S46.911A Strain of unspecified muscle, fascia and tendon at shoulder and upper arm level, right arm, initial encounter; X50.0XXA Overexertion from strenuous movement or load, initial encounter; Y93.F2 Activity, caregiving, lifting; I10 Essential (primary) hypertension; E11.9 Type 2 diabetes mellitus without complications; Z79.4 Long term (current) use of insulin
CPT/HCPCS: 20552; 96372; 99283; 99284; A9270

== ENCOUNTER 2019-10-27 01:28 | Emergency (ER) | payer OTHER ==
--- NOTE | 2019-10-27 01:29 | ED Physician Documentation ---
History of Present Illness - Stated complaint Stated Complaint: RT SHOULDER PAIN - Chief complaint Chief Complaint: Trauma Ext - History obtained from History obtained from: Patient (Patient is a 64-year-old male who presents with a chief complaint of right shoulder pain the patient reports he has been here multiple times before his right shoulder pain he gets a shot of Toradol he denies any new traumas or falls he denies any chest pain or shortness of breath.) Review of Systems Constitutional: reports: Reviewed and negative Eyes: reports: Reviewed and negative Ears: reports: Reviewed and negative Nose: reports: Reviewed and negative Throat: reports: Reviewed and negative Cardiac: reports: Reviewed and negative Respiratory: reports: Reviewed and negative GI: reports: Reviewed and negative : reports: Reviewed and negative Skin: reports: Reviewed and negative Musculoskeletal: reports: Extremity pain, Joint pain Neurologic: reports: Reviewed and negative Psychiatric: reports: Reviewed and negative Endocrine: reports: Reviewed and negative Immunocompromised: reports: Reviewed and negative PD PAST MEDICAL HISTORY - Past Medical History Cardiovascular: Hypertension, High cholesterol Respiratory: None Neuro: None Endocrine/Autoimmune: Type 2 diabetes GI: Colon polyps : Benign prostate hypertrophy, Frequency HEENT: Other Psych: None Musculoskeletal: Gout Derm: None - Past Surgical History Past Surgical History: Yes General: Cholecystectomy, Colonoscopy Ortho: Rotator cuff repair - Present Medications Home Medications: Ambulatory Orders Medication Instructions Recorded Confirmed Aspirin [Pancho Chewable] 81 mg PO DAILY 12/17/15 10/16/19 Atorvastatin [Lipitor] 20 mg PO DAILY 12/17/15 10/16/19 Finasteride 5 mg PO DAILY 12/17/15 10/16/19 Lisinopril [Prinivil] 5 mg PO DAILY 12/17/15 10/16/19 metFORMIN [Glucophage] 850 mg PO BIDWM 12/17/15 10/16/19 Cyclobenzaprine [Flexeril] 10 mg PO TID PRN #20 tablet 10/16/19 Exenatide Microspheres [Bydureon 10/16/19 Pen] Hydrocodone/Acetaminophen 1 - 2 each PO Q6H PRN #14 tablet 10/16/19 [Hydrocodon-Acetaminophen 5-325] Insulin Glargine [Lantus Solostar] 55 units SUBQ DAILY PM 10/16/19 10/16/19 Mirabegron [Myrbetriq] 25 mg PO 10/16/19 Oxycodone HCl/Acetaminophen 1 - 2 each PO Q6H PRN #14 tablet 10/20/19 [Percocet 5-325 mg Tablet] diazePAM [Valium] 5 - 10 mg PO TID PRN #15 tablet 10/20/19 predniSONE [Prednisone] 40 mg PO DAILY 3 Days #6 tablet 10/20/19 Naproxen 375 mg PO BID #20 tablet 10/24/19 Oxycodone HCl/Acetaminophen 1 each PO Q4H PRN #20 tablet 10/24/19 [Percocet 7.5-325 mg Tablet] - Allergies Allergies/Adverse Reactions: Allergies Allergy/AdvReac Type Severity Reaction Status Date / Time No Known Drug Allergies Allergy Verified 10/24/19 00:49 - Social History Does the pt smoke?: No Smoking Status: Never smoker Does the pt drink ETOH?: No Does the pt have substance abuse?: No - Immunizations Immunizations are current?: Yes - POLST Patient has POLST: No PD ED PE NORMAL - Vitals Vital signs reviewed: Yes - General General: Alert and oriented X 3, No acute distress - HEENT HEENT: PERRL - Neck Neck: Supple, no meningeal sign - Cardiac Cardiac: RRR, No murmur - Respiratory Respiratory: Clear bilaterally - Abdomen Abdomen: Normal bowel sounds, Soft, Non tender, Non distended - Derm Derm: Warm and dry - Extremities Extremities: No deformity, No edema, No calf tenderness / cord, Other (The right upper extremity is tender to palpation diffusely over the shoulder joint as well as the AC joint he has decreased range of motion of the right upper extremity he arrives with his shoulder in a sling there is no gross deformity his sensations intact over the lateral deltoid his radian, median, ulnar and motor and sensory exam are intact 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 refill is less than 2 seconds his radial pulses are 2+ and symmetric.) - Neuro Neuro: Alert and oriented X 3 - Psych Psych: Normal mood, Normal affect Results - Vitals Vitals: Vital Signs - 24 hr 10/27/19 10/27/19 01:34 01:55 Temperature 36.3 C L Heart Rate 78 Respiratory 18 17 Rate Blood Pressure 146/98 H O2 Saturation 98 Oxygen O2 Source Room air PD MEDICAL DECISION MAKING - ED course Complexity details: other (Patient reports that he is scheduled for an outpatient MRI next week he reports previously has been seen and being given an IM injection with Toradol and that improves the symptoms will provide him with 1 intramuscular injection of Toradol he reports he is never had a x-ray of his right upper extremity and right shoulder this point we did order a right shoulder x-ray which should be done prior to right shoulder MR I it is unrema rkable there is no acute fracture dislocation all of this was discussed with the patient and the patient was reexamined he reports that the symptoms have improved and he like to be discharged home.) Departure - Departure Disposition: 01 Home, Self Care Clinical Impression: Shoulder injury Qualifiers: Encounter type: subsequent encounter Laterality: right Qualified Code(s): S49.91XD - Unspecified injury of right shoulder and upper arm, subsequent encounter Instructions: ED Strain Muscle Ext Follow-Up: KEHINDE MARTIN ARNP [Primary Care Provider] -
[2019-10-27 01:38] VITALS: BP 146/98
[2019-10-27] MEDS ORDERED: KETOROLAC 30 MG/ML VIAL IM STA (01:43)
--- NOTE | 2019-10-27 02:18 | XRAY Report ---
Reason: right shoulder pain Procedure Date: 10/27/2019 Accession Number: [id number] / [id number] Procedure: XR - Shoulder 3 View RT CPT Code: Final Report FULL RESULT: EXAM: RIGHT SHOULDER RADIOGRAPHY EXAM DATE: 10/27/2019 02:09 AM. CLINICAL HISTORY: Right shoulder pain. COMPARISON: None. TECHNIQUE: 3 views. FINDINGS: Bones: Normal. No fracture or bone lesion. Joints: There is small osteophytes at the acromioclavicular joint. Soft tissues: The visualized hemithorax is unremarkable. No soft tissue swelling. IMPRESSION: Degenerative changes at the AC joint otherwise negative study. [facility]
== END 2019-10-27 02:38 | disposition home or self-care (01) ==
LOC: ED 01:28
DX: S49.91XA Unspecified injury of right shoulder and upper arm, initial encounter (principal); X58.XXXA Exposure to other specified factors, initial encounter; I10 Essential (primary) hypertension; E11.9 Type 2 diabetes mellitus without complications; Z79.4 Long term (current) use of insulin
CPT/HCPCS: 96372; 99282; 99283

== ENCOUNTER 2019-11-16 02:04 | Emergency (ER) | payer OTHER ==
--- NOTE | 2019-11-16 02:10 | ED Physician Documentation ---
History of Present Illness - Stated complaint Stated Complaint: RT ARM PX - History obtained from History obtained from: Patient (the patient is a 64 Y/O M who presents with right arm and right sided neck discomfort, patient reports a recent outpatinet MRI that showed cervical radiculopathy from bulging discs of the c spine. he reports pain of the right arm without cp or sob. denies any new injuries.) Review of Systems Ten Systems: 10 systems reviewed and negative Constitutional: reports: Reviewed and negative Eyes: reports: Reviewed and negative Ears: reports: Reviewed and negative Nose: reports: Reviewed and negative Throat: reports: Reviewed and negative Cardiac: reports: Reviewed and negative Respiratory: reports: Reviewed and negative GI: reports: Reviewed and negative : reports: Reviewed and negative Skin: reports: Reviewed and negative Musculoskeletal: reports: Neck pain, Extremity pain Neurologic: reports: Reviewed and negative Psychiatric: reports: Reviewed and negative Endocrine: reports: Reviewed and negative Immunocompromised: reports: Reviewed and negative PD PAST MEDICAL HISTORY - Past Medical History Cardiovascular: Hypertension, High cholesterol Respiratory: None Neuro: None Endocrine/Autoimmune: Type 2 diabetes GI: Colon polyps : Benign prostate hypertrophy, Frequency HEENT: Other Psych: None Musculoskeletal: Gout Derm: None - Past Surgical History Past Surgical History: Yes General: Cholecystectomy, Colonoscopy Ortho: Rotator cuff repair - Present Medications Home Medications: Ambulatory Orders Medication Instructions Recorded Confirmed Atorvastatin [Lipitor] 20 mg PO DAILY 12/17/15 11/16/19 Finasteride 5 mg PO DAILY 12/17/15 11/16/19 Lisinopril [Prinivil] 5 mg PO DAILY 12/17/15 11/16/19 metFORMIN [Glucophage] 850 mg PO BIDWM 12/17/15 11/16/19 Exenatide Microspheres [Bydureon 2 mg SUBQ 10/16/19 Pen] Insulin Glargine [Lantus Solostar] 55 units SUBQ DAILY PM 10/16/19 11/16/19 Mirabegron [Myrbetriq] 25 mg PO DAILY 10/16/19 11/16/19 Hydrocodone/Acetaminophen [[place] 1 each PO Q8HR PRN #6 tab 11/16/19 5-325 Tablet] - Allergies Allergies/Adverse Reactions: Allergies Allergy/AdvReac Type Severity Reaction Status Date / Time No Known Drug Allergies Allergy Verified 11/16/19 02:16 - Social History Does the pt smoke?: No Smoking Status: Never smoker Does the pt drink ETOH?: No Does the pt have substance abuse?: No - Immunizations Immunizations are current?: Yes - POLST Patient has POLST: No PD ED PE NORMAL - Vitals Vital signs reviewed: Yes - General General: Alert and oriented X 3, No acute distress - HEENT HEENT: PERRL - Neck Neck: Supple, no meningeal sign, No JVD, No bruit - Cardiac Cardiac: RRR, No murmur, Strong equal pulses - Respiratory Respiratory: No respiratory distress, Clear bilaterally - Abdomen Abdomen: Normal bowel sounds, Soft, Non tender, Non distended - Back Back: No spinal TTP - Derm Derm: Normal color, Warm and dry, No rash - Extremities Extremities: No deformity, No tenderness to palpate, Other (decreased ROM of the RUE on active ROM, Radian, median, ulnar motor and sensory exam are intact of the right upper extremity. Sensations intact over the lateral right deltoid.Compartments are soft radial pulses are 2+ and symmetric deputy assessor strength is 5 out of 5.) - Neuro Neuro: Alert and oriented X 3, gear hobber operator 2-12 intact, No motor deficit, Normal speech - Psych Psych: Normal mood, Normal affect Results - Vitals Vitals: Vital Signs - 24 hr 11/16/19 02:05 Temperature 36.5 C Heart Rate 81 Respiratory 16 Rate Blood Pressure 143/96 H O2 Saturation 97 Oxygen O2 Source Room air PD MEDICAL DECISION MAKING - ED course Complexity details: other (History and exam are consistent with cervical radiculopathy.Patient reports he has been treated with Toradol previously and this provides him with relief.) Departure - Departure Disposition: 01 Home, Self Care Clinical Impression: Cervical radiculopathy Condition: Good Instructions: ED Cervical Radiculopathy Follow-Up: KEHINDE MARTIN ARNP [Primary Care Provider] - Prescriptions: Hydrocodone/Acetaminophen [[place] 5-325 Tablet] 1 each PO Q8HR PRN #6 tab PRN Reason: Pain
[2019-11-16] MEDS ORDERED: KETOROLAC 30 MG/ML VIAL IM STA (02:32)
[2019-11-16 03:01] VITALS: BP 138/90
== END 2019-11-16 03:01 | disposition home or self-care (01) ==
LOC: ED 02:04
DX: M54.12 Radiculopathy, cervical region (principal); I10 Essential (primary) hypertension; E11.9 Type 2 diabetes mellitus without complications; Z79.4 Long term (current) use of insulin
CPT/HCPCS: 99283

== ENCOUNTER 2021-04-30 05:13 | Emergency (ER) | payer OTHER ==
[2021-04-30] MEDS ORDERED: KETOROLAC 15 MG/ML VIAL IM STA (05:55)
--- NOTE | 2021-04-30 05:58 | ED Physician Documentation ---
History of Present Illness - Stated complaint Stated Complaint: L SIDE PX - Chief complaint Chief Complaint: Abd Pain - History obtained from History obtained from: Patient - Additonal information Additional information: 65-year-old man with history of diabetes, kidney stones, and high blood pressure Presents with left mid back pain upon waking this morning that is constant, 6 out of 10, nonradiating, dull and sharp, without any exacerbating or relieving features. Patient has not taken any medications. He denies nausea, fever, abdominal pain, urinary symptoms. He has never had pain like this before. Denies increased exercise recently. Review of Systems Constitutional: denies: Fever Cardiac: denies: Chest pain / pressure Respiratory: denies: Dyspnea GI: denies: Abdominal Pain, Nausea : denies: Dysuria Musculoskeletal: reports: Back pain PD PAST MEDICAL HISTORY - Past Medical History Past Medical History: Yes Cardiovascular: Hypertension, High cholesterol Respiratory: None Neuro: None Endocrine/Autoimmune: Type 2 diabetes GI: Colon polyps : Benign prostate hypertrophy, Frequency, Kidney stones HEENT: Other Psych: None Musculoskeletal: Gout Derm: None - Past Surgical History Past Surgical History: Yes General: Cholecystectomy, Colonoscopy Ortho: Rotator cuff repair - Present Medications Home Medications: Ambulatory Orders Medication Instructions Recorded Confirmed Atorvastatin [Lipitor] 20 mg PO DAILY 12/17/15 04/30/21 Finasteride 5 mg PO DAILY 12/17/15 04/30/21 lisinopriL [Prinivil] 5 mg PO DAILY 12/17/15 04/30/21 metFORMIN [Glucophage] 850 mg PO BIDWM 12/17/15 04/30/21 Exenatide Microspheres [Bydureon 2 mg SUBQ 10/16/19 Pen] Insulin Glargine [Lantus Solostar] 55 units SUBQ DAILY PM 10/16/19 04/30/21 Mirabegron [Myrbetriq] 25 mg PO DAILY 10/16/19 04/30/21 Oxycodone HCl/Acetaminophen 1 each PO Q4H PRN #10 tablet 04/30/21 [Percocet 10-325 mg Tablet] Tamsulosin [Flomax] 0.4 mg PO DAILY 14 Days #14 tab 04/30/21 - Allergies Allergies/Adverse Reactions: Allergies Allergy/AdvReac Type Severity Reaction Status Date / Time No Known Drug Allergies Allergy Verified 04/30/21 05:29 - Social History Does the pt smoke?: No Smoking Status: Never smoker Does the pt drink ETOH?: No Does the pt have substance abuse?: No - Immunizations Immunizations are current?: Yes - POLST Patient has POLST: No PD ED PE NORMAL - Vitals Vital signs reviewed: Yes - General General: Alert and oriented X 3, No acute distress, Well developed/nourished - HEENT HEENT: Atraumatic, PERRL, EOMI - Neck Neck: Supple, no meningeal sign - Abdomen Abdomen: Non tender, Non distended - Back Back: No CVA TTP, Other (Left lateral mid belt back operator to palpation in a muscular distribution.) - Derm Derm: Normal color, Warm and dry - Extremities Extremities: No deformity - Neuro Neuro: Alert and oriented X 3 - Psych Psych: Normal mood, Normal affect Results - Vitals Vitals: Vital Signs - 24 hr 04/30/21 04/30/21 05:24 05:28 Temperature 36.7 C 36.7 C Heart Rate 98 98 Respiratory 16 16 Rate Blood Pressure 141/90 H 141/90 H O2 Saturation 99 99 Oxygen O2 Source Room air - Labs Labs: Laboratory Tests 04/30/21 04/30/21 04/30/21 05:35 06:35 06:35 WBC 8.9 RBC 4.63 L Hgb 14.4 Hct 42.5 MCV 91.8 MCH 31.1 H MCHC 33.9 RDW 12.3 Plt Count 233 MPV 9.4 Neut # (Auto) 5.4 Lymph # (Auto) 2.1 [place] # (Auto) 0.9 Eos # (Auto) 0.4 Baso # (Auto) 0.1 Absolute Nucleated RBC 0.00 Nucleated RBC % 0.0 Sodium 139 Potassium 3.9 Chloride 102 Carbon Dioxide 27 Anion Gap 10.0 BUN 19 Creatinine 1.2 Estimated GFR (MDRD) 61 L Glucose 128 H Calcium 9.0 Total Bilirubin 0.9 AST 28 ALT 32 Alkaline Phosphatase 47 Total Protein 6.5 L Albumin 4.2 Globulin 2.3 Albumin/Globulin Ratio 1.8 Lipase 38 Urine Color YELLOW Urine Clarity CLEAR Urine pH 5.5 Ur Specific [place] >=1.030 H Urine Protein TRACE Urine Glucose (UA) 250 H Urine Ketones NEGATIVE Urine Occult Blood SMALL H Urine Nitrite NEGATIVE Urine Bilirubin NEGATIVE Urine Urobilinogen 4 H Ur Leukocyte Esterase NEGATIVE Urine RBC 0-5 Urine WBC 0-3 Ur Squamous Epith Cells NONE SEEN Urine Crystals 6-10 Calcium Oxalate Urine Bacteria None Seen Urine Mucus Few Strands Urine Culture Comments NOT INDICATED PD MEDICAL DECISION MAKING - ED course ED course: 65-year-old man presents with muscular appearing mid lower back pain to the left lateral back. Will treat with Toradol, evaluate urine for signs of kidney involvement. Given hematuria on urinalysis, will order labs and CT for evaluation of possible kidney stones. CT with evidence of L perinephric stranding and some hydro. multiple stones along urinary tract. [facility] d[facility] Dr. Hernandez recommends outpatient f/u. return precautions given. Departure - Departure Clinical Impression: Kidney stones Condition: Good Instructions: Kidney Stones Prescriptions: Tamsulosin [Flomax] 0.4 mg PO DAILY 14 Days #14 tab Oxycodone HCl/Acetaminophen [Percocet 10-325 mg Tablet] 1 each PO Q4H PRN #10 tablet PRN Reason: Pain Comments: You were seen in the emergency department for kidney stones. You do not have an infection in your urine, your kidney function is normal on lab work, you will need to follow-up with your urologist. Please return to the emergency department if you have any new or worsening symptoms or other concerns. Return if you have fever higher than 100.4.
[2021-04-30 06:05] LABS: BILIRUBIN,URINE NEGATIVE (NEGATIVE); GLUCOSE, URINE (UA) 250 mg/dL (NEGATIVE); KETONES,URINE (UA) NEGATIVE (NEGATIVE); LEUKOCYTE ESTERASE, URINE NEGATIVE (NEGATIVE); NITRITE,URINE NEGATIVE (NEGATIVE); OCCULT BLOOD,URINE SMALL (NEGATIVE); PH,URINE 5.5 PH (5.0-7.5); PROTEIN,URINE TRACE mg/dL (NEGATIVE); UROBILINOGEN,URINE 4 E.U./dL (NORMAL)
[2021-04-30 06:07] LABS: CLARITY,URINE CLEAR (CLEAR)
[2021-04-30 06:11] LABS: RBC,URINE 0-5 /HPF (0-5); SQUAMOUS EPITHELIAL CELL,UR NONE SEEN (<= Few); WBC,URINE 0-3 /HPF (0-3)
[2021-04-30 06:12] LABS: BACTERIA,URINE None Seen /HPF (None Seen); CRYSTALS,URINE 6-10 Calcium Oxalate /LPF; MUCUS,URINE Few Strands
[2021-04-30] MEDS ORDERED: MORPHINE 10 MG/ML VIAL IVP STA (06:30)
[2021-04-30] MEDS ORDERED: SODIUM CHLORIDE 0.9% 1,000 ML IV STA (06:30)
[2021-04-30] MEDS ORDERED: IOPAMIDOL-300 100 ML VIAL ONE (06:35)
[2021-04-30 06:42] LABS: BASOPHILS # (AUTO) 0.1 10^3/uL (0.0-0.1); BASOPHILS % (AUTO) 0.9 %; EOSINOPHILS # (AUTO) 0.4 10^3/uL (0.0-0.7); EOSINOPHILS % (AUTO) 4.7 %; HCT - HEMATOCRIT 42.5 % (42.0-52.0); HGB - HEMOGLOBIN 14.4 g/dL (14.0-18.0); LYMPHOCYTES # (AUTO) 2.1 10^3/uL (1.5-3.5); LYMPHOCYTES % (AUTO) 23.4 %; MEAN CORPUSCULAR HEMOGLOBIN 31.1 pg (27.0-31.0); MEAN CORPUSCULAR HGB CONC 33.9 g/dL (32.0-36.0); MEAN CORPUSCULAR VOLUME 91.8 fL (80.0-94.0); MEAN PLATELET VOLUME 9.4 fL (7.4-11.4); MONOCYTES # (AUTO) 0.9 10^3/uL (0.0-1.0); MONOCYTES % (AUTO) 9.9 %; NEUTROPHILS # (AUTO) 5.4 10^3/uL (1.5-6.6); NEUTROPHILS % (AUTO) 60.9 %; PLT - PLATELET COUNT 233 10^3/uL (130-450); RED BLOOD COUNT 4.63 10^6/uL (4.70-6.10); RED CELL DISTRIBUTION WIDTH 12.3 % (12.0-15.0); WHITE BLOOD COUNT 8.9 x10^3/uL (4.8-10.8)
[2021-04-30 06:57] LABS: ALBUMIN 4.2 g/dL (3.2-5.5); ALBUMIN/GLOBULIN RATIO 1.8 (1.0-2.2); BILIRUBIN,TOTAL 0.9 mg/dL (0.2-1.0); CREATININE 1.2 mg/dL (0.6-1.2); POTASSIUM 3.9 mmol/L (3.5-5.0); TOTAL PROTEIN 6.5 g/dL (6.7-8.2)
--- NOTE | 2021-04-30 07:51 | CT Report ---
PROCEDURE: Abdomen/Pelvis W INDICATIONS: Abdominal pain, acute, nonlocalized CONTRAST: IV CONTRAST: Isovue 300 ml: 100 PO CONTRAST: *NO PO CONTRAST TECHNIQUE: After the administration of intravenous contrast, 5 mm thick sections acquired from the diaphragms to the symphysis. 5 mm thick coronal and sagittal reformats were acquired. For radiation dose reducti on, the following was used: automated exposure control, adjustment of mA and/or kV according to tiffany ent size. COMPARISON: 08/14/2018 FINDINGS: Image quality: Excellent. ABDOMEN: Lung bases: Lung bases are clear. Heart size is normal. Solid organs: Liver and spleen are normal in size and enhancement. Gallbladder is surgically absent . Biliary system is non dilated. Pancreas enhances normally. No adrenal nodules. There is a 3 mm nonobstructing right middle pole renal stone. No right renal mass or hydronephrosis. There is a minimally delayed left nephrogram. There is mild left hydronephrosis. There is left perine phric stranding. There is a 2 mm nonobstructing left middle pole. An. There is a 2 mm nonobstructing left lower pole stone. The left ureter is mildly dilated to just above the ureterovesical junction wh ere there is obstruction by a 3 mm stone. Peritoneum and bowel: Bowel loops demonstrate normal wall thickness and caliber. No free fluid or a ir. Nodes and vessels: No retroperitoneal or mesenteric adenopathy by size criteria. Aorta and inferior vena cava are normal in size. Miscellaneous: No ventral hernias. PELVIS: Genitourinary: Bladder wall thickness is normal. Miscellaneous: No inguinal hernias or adenopathy. Bones: No suspicious bony lesions. No vertebral body compression fractures. IMPRESSION: 1. A 3 mm nonobstructing the left ureter just above the ureterovesical junction resulting in mild lef t hydronephrosis, a mildly delayed nephrogram, and perinephric stranding. 2. There are also 2 small stones in the left kidney which are nonobstructing. 3. Nonobstructing 3 mm right middle pole stone. Reviewed by: Micha Cohn MD on 04/30/2021 7:50 AM PDT Approved by: Micha Cohn MD on 04/30/2021 7:50 AM PDT Station ID: [id number]
[2021-04-30] MEDS ORDERED: IOPAMIDOL-300 100 ML VIAL IVP ONE (08:18)
[2021-04-30 09:05] VITALS: BP 130/90
== END 2021-04-30 09:04 | disposition home or self-care (01) ==
LOC: ED 05:13
DX: N13.2 Hydronephrosis with renal and ureteral calculous obstruction (principal); R31.9 Hematuria, unspecified
CPT/HCPCS: 36415; 74177; 80053; 81001; 83690; 85025; 96372; 96374; 99284; Q9967; 87086

== ENCOUNTER 2021-07-05 16:00 | Emergency (ER) | payer SELFPAY ==
[2021-07-05 16:28] LABS: BASOPHILS # (AUTO) 0.1 10^3/uL (0.0-0.1); BASOPHILS % (AUTO) 0.8 %; EOSINOPHILS # (AUTO) 0.3 10^3/uL (0.0-0.7); EOSINOPHILS % (AUTO) 3.6 %; HCT - HEMATOCRIT 42.7 % (42.0-52.0); HGB - HEMOGLOBIN 14.4 g/dL (14.0-18.0); LYMPHOCYTES # (AUTO) 2.1 10^3/uL (1.5-3.5); LYMPHOCYTES % (AUTO) 23.6 %; MEAN CORPUSCULAR HEMOGLOBIN 31.3 pg (27.0-31.0); MEAN CORPUSCULAR HGB CONC 33.7 g/dL (32.0-36.0); MEAN CORPUSCULAR VOLUME 92.8 fL (80.0-94.0); MEAN PLATELET VOLUME 8.9 fL (7.4-11.4); MONOCYTES # (AUTO) 0.7 10^3/uL (0.0-1.0); MONOCYTES % (AUTO) 8.3 %; NEUTROPHILS # (AUTO) 5.5 10^3/uL (1.5-6.6); NEUTROPHILS % (AUTO) 63.2 %; PLT - PLATELET COUNT 249 10^3/uL (130-450); RED CELL DISTRIBUTION WIDTH 12.9 % (12.0-15.0); WHITE BLOOD COUNT 8.7 x10^3/uL (4.8-10.8)
[2021-07-05 16:46] LABS: ALBUMIN 4.2 g/dL (3.2-5.5); ALBUMIN/GLOBULIN RATIO 1.7 (1.0-2.2); BILIRUBIN,TOTAL 0.6 mg/dL (0.2-1.0); CREATININE 0.9 mg/dL (0.6-1.2); POTASSIUM 3.7 mmol/L (3.5-5.0); TOTAL PROTEIN 6.7 g/dL (6.7-8.2)
--- NOTE | 2021-07-05 17:09 | XRAY Report ---
PROCEDURE: Chest 1 View X-Ray INDICATIONS: Chest pain TECHNIQUE: One view of the chest was acquired. COMPARISON: None FINDINGS: Surgical changes and devices: None. Lungs and pleura: No pleural effusions or pneumothorax. Lungs are clear. Mediastinum: Mediastinal contours appear normal. Heart size is normal. Bones and chest wall: No suspicious bony lesions. Overlying soft tissues appear unremarkable. IMPRESSION: No acute pulmonary process. Reviewed by: Heidy Burgess MD on 07/05/2021 5:08 PM PDT Approved by: Heidy Burgess MD on 07/05/2021 5:08 PM PDT Station ID: [id number]
--- NOTE | 2021-07-05 19:04 | ED Physician Documentation ---
PD HPI CHEST PAIN - Stated complaint Stated Complaint: PX DOWN LEFT ARM - Chief complaint Chief Complaint: Cardiac - History obtained from History obtained from: Patient - Additional information Additional information: Patient comes emergency department chief complaint of left shoulder pain that intermittently radiates down his left arm. He states he was at rest when the pain began and that this was quite out of the blue. He states he did not have any other symptoms; no shortness of breath, nausea, diaphoresis, or lightheadedness. He denies any chest pain or other discomfort. No shoulder problems historically or injury to the shoulder. He has a history of some neck issues and has had a pinched nerve from this before, but states this feels different. He does note that the pain seems to be worse if he extends his arm at the shoulder. No history of coronary artery disease that he knows of. No diabetes. No family history of coronary artery disease. Patient has not never has been a smoker. No recent exertional chest pain or dyspnea. Patient states he is able to do all the things he normally would without extra discomfort or fatigue. Review of Systems Ten Systems: 10 systems reviewed and negative Constitutional: reports: Reviewed and negative Eyes: reports: Reviewed and negative Ears: reports: Reviewed and negative Nose: reports: Reviewed and negative Throat: reports: Reviewed and negative Cardiac: reports: Reviewed and negative Respiratory: reports: Reviewed and negative GI: reports: Reviewed and negative : reports: Reviewed and negative Skin: reports: Reviewed and negative Musculoskeletal: reports: Extremity pain, Joint pain Neurologic: reports: Reviewed and negative Psychiatric: reports: Reviewed and negative Endocrine: reports: Reviewed and negative Immunocompromised: reports: Reviewed and negative PD PAST MEDICAL HISTORY - Past Medical History Cardiovascular: Hypertension, High cholesterol Respiratory: None Neuro: None Endocrine/Autoimmune: Type 2 diabetes GI: Colon polyps : Benign prostate hypertrophy, Frequency, Kidney stones HEENT: Other Psych: None Musculoskeletal: Gout Derm: None - Past Surgical History Past Surgical History: Yes General: Cholecystectomy, Colonoscopy Ortho: Rotator cuff repair - Present Medications Home Medications: Ambulatory Orders Medication Instructions Recorded Confirmed Atorvastatin [Lipitor] 20 mg PO DAILY 12/17/15 04/30/21 Finasteride 5 mg PO DAILY 12/17/15 04/30/21 lisinopriL [Prinivil] 5 mg PO DAILY 12/17/15 04/30/21 metFORMIN [Glucophage] 850 mg PO BIDWM 12/17/15 04/30/21 Exenatide Microspheres [Bydureon 2 mg SUBQ 10/16/19 Pen] Insulin Glargine [Lantus Solostar] 55 units SUBQ DAILY PM 10/16/19 04/30/21 Mirabegron [Myrbetriq] 25 mg PO DAILY 10/16/19 04/30/21 Oxycodone HCl/Acetaminophen 1 each PO Q4H PRN #10 tablet 04/30/21 [Percocet 10-325 mg Tablet] Tamsulosin [Flomax] 0.4 mg PO DAILY 14 Days #14 tab 04/30/21 - Allergies Allergies/Adverse Reactions: Allergies Allergy/AdvReac Type Severity Reaction Status Date / Time No Known Drug Allergies Allergy Verified 07/05/21 16:12 - Social History Does the pt smoke?: No Smoking Status: Never smoker Does the pt drink ETOH?: No Does the pt have substance abuse?: No - Immunizations Immunizations are current?: Yes - POLST Patient has POLST: No PD ED PE NORMAL - Vitals Vital signs reviewed: Yes - General General: Alert and oriented X 3, No acute distress, Well developed/nourished - HEENT HEENT: Atraumatic, PERRL, EOMI, Moist mucous membranes - Neck Neck: Supple, no meningeal sign - Cardiac Cardiac: RRR, No murmur - Respiratory Respiratory: No respiratory distress, Clear bilaterally - Abdomen Abdomen: Soft, Non tender, Non distended - Back Back: No CVA TTP, No spinal TTP - Derm Derm: Normal color, Warm and dry, No rash - Extremities Extremities: No deformity, No tenderness to palpate, Normal ROM s pain, No edema - Neuro Neuro: Alert and oriented X 3, optical effects camera operator 2-12 intact, Normal speech - Psych Psych: Normal mood, Normal affect Results - Vitals Vitals: Oxygen O2 Source Room air - EKG (time done) 1611 Rate: Rate (enter#) (79) Rhythm: NSR [place]: Normal Intervals: Normal ND QRS: Normal Ischemia: Normal ST segments Compare to prior EKG: Old EKG unavailable Computer interpretation: Agree with computer - Labs Labs: Laboratory Tests 07/05/21 07/05/21 07/05/21 16:24 16:24 16:24 WBC 8.7 RBC 4.60 L Hgb 14.4 Hct 42.7 MCV 92.8 MCH 31.3 H MCHC 33.7 RDW 12.9 Plt Count 249 MPV 8.9 Neut # (Auto) 5.5 Lymph # (Auto) 2.1 [place] # (Auto) 0.7 Eos # (Auto) 0.3 Baso # (Auto) 0.1 Absolute Nucleated RBC 0.00 Nucleated RBC % 0.0 Sodium 138 Potassium 3.7 Chloride 101 Carbon Dioxide 29 Anion Gap 8.0 BUN 18 Creatinine 0.9 Estimated GFR (MDRD) 85 L Glucose 133 H Calcium 9.0 Total Bilirubin 0.6 AST 20 ALT 26 Alkaline Phosphatase 41 L Troponin I High Sens 4.6 Total Protein 6.7 Albumin 4.2 Globulin 2.5 Albumin/Globulin Ratio 1.7 Lipase 59 H 07/05/21 18:23 WBC RBC Hgb Hct MCV MCH MCHC RDW Plt Count MPV Neut # (Auto) Lymph # (Auto) [place] # (Auto) Eos # (Auto) Baso # (Auto) Absolute Nucleated RBC Nucleated RBC % Sodium Potassium Chloride Carbon Dioxide Anion Gap BUN Creatinine Estimated GFR (MDRD) Glucose Calcium Total Bilirubin AST ALT Alkaline Phosphatase Troponin I High Sens 4.5 Total Protein Albumin Globulin Albumin/Globulin Ratio Lipase - Rads (name of study) CXR Radiology: Final report received, EMP read indepedently, See rad report (neg) PD MEDICAL DECISION MAKING - ED course Complexity details: reviewed results, re-evaluated patient, considered differential, d/w patient ED course: Pt was worked up with a cardiac panel of labs, EKG, and CXR, all of which were unremarkable. Repeat troponin was unchanged. Pain is not typical of a cardiac source, but I have advised pt to f/u with his PCP to discuss having a stress test done. Pt is agreeable. We have discussed the usual indications for immediate return to the ED. Departure - Departure Disposition: 01 Home, Self Care Clinical Impression: Shoulder pain, left Qualifiers: Chronicity: acute Qualified Code(s): M25.512 - Pain in left shoulder Condition: Stable Instructions: ED Shoulder Pain [facility] Comments: Both of your sets of cardiac enzymes were completely normal. The rest of your labs, your chest x-ray and your EKG also look good. Is not clear why you have the pain in the back of your shoulder, but at this point in time, it does not seem to be coming from your heart. However, to be on the safe side, you should follow-up with your primary doctor and talk about having a stress test done to take 1 more look at your heart. If you develop worsening pain associated with shortness of breath, chest pain, nausea, lightheadedness, and/or facial sweating, please return to the emergency department immediately. Discharge Date/Time: 07/05/21 19:13
[2021-07-05 19:14] VITALS: BP 145/96
== END 2021-07-05 19:13 | disposition home or self-care (01) ==
LOC: ED 16:00
DX: M25.512 Pain in left shoulder (principal); M79.602 Pain in left arm; I10 Essential (primary) hypertension; E11.9 Type 2 diabetes mellitus without complications; Z79.4 Long term (current) use of insulin; Z79.84 Long term (current) use of oral hypoglycemic drugs
CPT/HCPCS: 36415; 80053; 83690; 84484; 85025; 93005; 99284

== ENCOUNTER 2021-08-03 09:20 | Emergency (ER) | payer MEDICARE, OTHER ==
--- NOTE | 2021-08-03 10:58 | XRAY Report ---
PROCEDURE: Foot 3 View LT INDICATIONS: Trauma TECHNIQUE: 3 views of the foot were acquired. COMPARISON: None FINDINGS: Bones: No fractures or dislocations. No suspicious bony lesions. Scattered areas of degenerative c hange are noted. Small midfoot as well as calcaneal spurs are noted. Soft tissues: No tibiotalar joint effusion. Achilles tendon appears normal. IMPRESSION: No visualized acute fracture or dislocation. However, occult injury cannot be excluded. Recommend mehul rt interval imaging follow-up in 7-10 days as clinically indicated for additional evaluation. Reviewed by: Heidy Burgess MD on 08/03/2021 10:56 AM PDT Approved by: Heidy Burgess MD on 08/03/2021 10:56 AM PDT Station ID: [id number]
--- NOTE | 2021-08-03 12:18 | ED Physician Documentation ---
History of Present Illness - Stated complaint Stated Complaint: L FOOT INJURY - Chief complaint Chief Complaint: Trauma Ext - History obtained from History obtained from: Patient - History of Present Illness Timing: How many days ago (several days) Pain level max: 6 Pain level now: 5 - Additonal information Additional information: Patient is a 66-year-old male who complains of left foot pain and swelling. He states he has neuropathy in his foot. He was recently in [place] and does not recall any specific injury but did notice bruising and swelling to the top of the foot. No redness. No pain in his calf or leg. No swelling in the leg. Worse with movement and palpation. Better with rest. Review of Systems Constitutional: denies: Fever, Chills GI: denies: Vomiting, Diarrhea Musculoskeletal: denies: Neck pain, Back pain Neurologic: denies: Headache PD PAST MEDICAL HISTORY - Past Medical History Past Medical History: Yes Cardiovascular: Hypertension, High cholesterol Respiratory: None Neuro: None, Peripheral neuropathy Endocrine/Autoimmune: Type 2 diabetes GI: Colon polyps : Benign prostate hypertrophy, Frequency, Kidney stones HEENT: Other Psych: None Musculoskeletal: Gout Derm: None - Past Surgical History Past Surgical History: Yes General: Cholecystectomy, Colonoscopy Ortho: Rotator cuff repair - Present Medications Home Medications: Ambulatory Orders Medication Instructions Recorded Confirmed Atorvastatin [Lipitor] 20 mg PO DAILY 12/17/15 04/30/21 Finasteride 5 mg PO DAILY 12/17/15 04/30/21 lisinopriL [Prinivil] 5 mg PO DAILY 12/17/15 04/30/21 metFORMIN [Glucophage] 850 mg PO BIDWM 12/17/15 04/30/21 Exenatide Microspheres [Bydureon 2 mg SUBQ 10/16/19 Pen] Insulin Glargine [Lantus Solostar] 55 units SUBQ DAILY PM 10/16/19 04/30/21 Mirabegron [Myrbetriq] 25 mg PO DAILY 10/16/19 04/30/21 Oxycodone HCl/Acetaminophen 1 each PO Q4H PRN #10 tablet 04/30/21 [Percocet 10-325 mg Tablet] Tamsulosin [Flomax] 0.4 mg PO DAILY 14 Days #14 tab 04/30/21 - Allergies Allergies/Adverse Reactions: Allergies Allergy/AdvReac Type Severity Reaction Status Date / Time No Known Drug Allergies Allergy Verified 08/03/21 09:31 - Social History Does the pt smoke?: No Smoking Status: Never smoker Does the pt drink ETOH?: No Does the pt have substance abuse?: No - Immunizations Immunizations are current?: Yes - POLST Patient has POLST: No PD ED PE NORMAL - Vitals Vital signs reviewed: Yes - General General: Alert and oriented X 3, No acute distress - HEENT HEENT: Moist mucous membranes - Neck Neck: Supple, no meningeal sign - Cardiac Cardiac: RRR - Respiratory Respiratory: No respiratory distress, Clear bilaterally - Derm Derm: Warm and dry - Extremities Extremities: Other (Mild swelling over the dorsum of the left foot. Mild ecchymosis on the distal aspect of the foot just before the toes. No erythema. No calf swelling or tenderness. Does have varicose veins.) - Neuro Neuro: Alert and oriented X 3 Results - Vitals Vitals: Vital Signs - 24 hr 08/03/21 09:31 Temperature 36 C L Heart Rate 61 Respiratory 18 Rate Blood Pressure 120/102 H O2 Saturation 97 Oxygen O2 Source Room air - Rads (name of study) Left foot x-ray Radiology: Final report received, EMP read contemporaneously, See rad report (No acute abnormality) PD MEDICAL DECISION MAKING - ED course Complexity details: reviewed results, re-evaluated patient, considered differential, d/w patient ED course: 66-year-old male presents to the emergency department with left foot pain and swelling. Unknown injury. Does have a history of neuropathy in the foot. No acute findings on x-ray. No evidence of DVT. No evidence of infection. Placed in a postoperative shoe for comfort. We will have him follow-up with his doctor for further care. Patient counseled regarding signs and symptoms for which I believe and urgent re-evaluation would be necessary. Patient with good understanding of and agreement to plan and is comfortable going home at this time This document was made in part using voice recognition software. While efforts are made to proofread this document, sound alike and grammatical errors may occur. Departure - Departure Disposition: 01 Home, Self Care Clinical Impression: Foot sprain Qualifiers: Encounter type: initial encounter Laterality: left Qualified Code(s): S93.602A - Unspecified sprain of left foot, initial encounter Condition: Good Instructions: ED Sprain Foot Follow-Up: Sergio Quan DO [Primary Care Provider] - Within 1 week Comments: Thankfully there are no fractures on your x-ray today. Here foot does not appear infected. Likely this is a soft tissue injury and should improve over the next few days. You can use the postoperative shoe to help. Stay off the foot is much as possible. Return if you worsen.
[2021-08-03 12:27] VITALS: BP 153/90
== END 2021-08-03 12:28 | disposition home or self-care (01) ==
LOC: ED 09:20
DX: S93.602A Unspecified sprain of left foot, initial encounter (principal); X58.XXXA Exposure to other specified factors, initial encounter; E11.42 Type 2 diabetes mellitus with diabetic polyneuropathy; Z79.4 Long term (current) use of insulin; Z79.84 Long term (current) use of oral hypoglycemic drugs
CPT/HCPCS: 99282; 99283

== ENCOUNTER 2021-08-26 09:05 | Day surgery (SDC) | payer MEDICARE, OTHER ==
[2021-08-26] MEDS ORDERED: LACTATED RINGERS 1,000 ML IV ONE ×2 (09:44→11:19)
--- NOTE | 2021-08-26 09:59 | ANESTHESIA ---
Pre-Anesthesia VS, & Labs - Diagnosis hx polyps - Procedure colonoscopy Vital Signs: Temp Pulse Resp BP Pulse Ox 36.2 C L 87 16 144/97 H 98 08/26/21 09:25 08/26/21 09:25 08/26/21 09:25 08/26/21 09:25 08/26/21 09:25 Height: 6 ft 2 in Weight (kg): 102.3 kg Body Mass Index: 28.9 BMI Classification: Overweight - NPO >8 hours - Lab Results Current Lab Results: Laboratory Tests 08/26/21 09:35: POC Whole Bld Glucose 85 Lab results reviewed: Yes Home Medications and Allergies Home Medications: Ambulatory Orders Gabapentin [Neurontin] 600 mg PO DAILY 08/24/21 Atorvastatin [Lipitor] 80 mg PO DAILY 12/17/15 Finasteride 5 mg PO DAILY 12/17/15 lisinopriL [Prinivil] 10 mg PO DAILY 12/17/15 metFORMIN [Glucophage] 1,000 mg PO BIDWM 12/17/15 Insulin Glargine [Lantus Solostar] 50 units SUBQ DAILY PM 10/16/19 Gabapentin [Neurontin] 600 mg PO DAILY 08/24/21 Allergies/Adverse Reactions: Allergies Allergy/AdvReac Type Severity Reaction Status Date / Time No Known Drug Allergies Allergy Verified 08/03/21 09:31 Anes History & Medical History - Anesthetic History Anesthesia Complications: reports: No previous complications Family history of Anesthesia Complications: Denies Family history of Malignant Hyperthermia: Denies - Medical History Cardiovascular: reports: Hypertension, High cholesterol Pulmonary: reports: None Gastrointestinal: reports: Colon polyps Urinary: reports: Benign prostate hypertrophy, Frequency, Kidney stones Neuro: reports: None, Peripheral neuropathy Musculoskeletal: reports: Gout Endocrine/Autoimmune: reports: Type 2 diabetes Blood Disorders: reports: None Skin: reports: None Smoking Status: Never smoker - Surgical History General: reports: Cholecystectomy, Colonoscopy Urologic: reports: Prostatic surgery Orthopedic: reports: Rotator cuff repair Exam General: Alert, Oriented x3, Cooperative Dental: WNL Mouth Opening: Greater than 4 Fingerbreadths Neck Mobility: Normal Mallampati classification: II Thyromental Distance: 4-6 cm Respiratory: Lungs clear, Normal breath sounds, No respiratory distress Cardiovascular: Regular rate Neurological: Normal speech Mental/Cognitive Status: Alert/Oriented X3, Normal for patient Cognitive Status: Within normal limits Plan Anesthesia Type: Total IV Consent for Procedure(s) Verified and Reviewed: Yes Code Status: Attempt Resuscitation ASA classification: 2-Mild systemic disease Is this case an emergency?: No
[2021-08-26] MEDS ORDERED: MIDAZOLAM 2 MG/2 ML VIAL ONE (10:10)
[2021-08-26] MEDS ORDERED: PROPOFOL 500 MG/50 ML 500 MG/50 ML VIAL ONE (10:10)
[2021-08-26] MEDS ORDERED: PROPOFOL 200 MG/20 ML VIAL IVP ONE ×2 (11:00→11:07)
[2021-08-26 11:39] VITALS: BP 143/93
--- NOTE | 2021-08-26 15:35 | ANESTHESIA POST OP EVALUATION ---
Anesthesia Post Eval - Post Anesthesia Eval Vitals: Last Vital Signs Temp 36.4 C L 08/26/21 11:38 Pulse 95 08/26/21 11:38 Resp 20 08/26/21 11:38 BP 143/93 H 08/26/21 11:38 Pulse Ox 97 08/26/21 11:38 CV Function Including HR & BP: Stable Pain Control: Satisfactory Nausea & Vomiting: Negative Mental Status: Baseline Respiratory Status: Airway Patent Hydration Status: Satisfactory Anesthesia Complications: None
== END 2021-08-26 09:06 | disposition home or self-care (01) ==
LOC: SDS 09:05
PROVIDERS: ATTEND Surgery
PROC: 0DBL8ZZ Excision of Transverse Colon, Via Natural or Artificial Opening Endoscopic (ICD-10-PCS; 2021-08-26)
PROC: 0DBN8ZZ Excision of Sigmoid Colon, Via Natural or Artificial Opening Endoscopic (ICD-10-PCS; principal; 2021-08-26 10:30)
DX: Z12.11 Encounter for screening for malignant neoplasm of colon (principal); D12.3 Benign neoplasm of transverse colon; K63.5 Polyp of colon; K64.8 Other hemorrhoids
CPT/HCPCS: 45380; 45385; J7120

== ENCOUNTER 2021-09-01 15:26 | Outpatient (CLI) | payer MEDICARE, OTHER ==
--- NOTE | 2021-09-01 17:30 | Ultrasound Report ---
PROCEDURE: Duplex Ext Veins Left INDICATIONS: LEFT LEG PAIN AND SWELLING TECHNIQUE: Real-time imaging, as well as color and pulse Doppler interrogation, were performed of the lower extr emity deep veins from the inguinal ligament to the popliteal fossa. COMPARISON: None. FINDINGS: The deep veins are normally compressible, and free of intraluminal thrombus. Color and pu lse Doppler demonstrate normal phasic intraluminal flow. There is normal augmentation response to di stal compression maneuver. IMPRESSION: No deep venous thrombosis. Reviewed by: Heidy Burgess MD on 09/01/2021 5:29 PM PST Approved by: Heidy Burgess MD on 09/01/2021 5:29 PM PST Station ID: [id number]
== END 2021-09-01 15:27 | disposition home or self-care (01) ==
LOC: DI 15:26
PROVIDERS: ATTEND Surgery
DX: M79.605 Pain in left leg (principal); R22.42 Localized swelling, mass and lump, left lower limb

== ENCOUNTER 2022-07-22 10:16 | Outpatient (CLI) | payer MEDICARE, OTHER ==
--- NOTE | 2022-07-22 11:18 | XRAY Report ---
PROCEDURE: Shoulder 3 View LT INDICATIONS: STRAIN OF MUSCLE AND TENDONS TECHNIQUE: 3 views of the shoulder were acquired. COMPARISON: None FINDINGS: Bones: No fractures or dislocations. No suspicious bony lesions. Visualized ribs appear intact. M oderate to severe acromioclavicular degenerative narrowing. Soft tissues: No suspicious soft tissue calcifications. IMPRESSION: Moderate acromioclavicular degenerative narrowing. Reviewed by: Heidy Burgess MD on 07/22/2022 11:17 AM PDT Approved by: Heidy Burgess MD on 07/22/2022 11:17 AM PDT Station ID: [id number]
== END 2022-07-22 10:17 | disposition home or self-care (01) ==
LOC: DI 10:16
PROVIDERS: ATTEND Family Medicine
DX: S46.012A Strain of muscle(s) and tendon(s) of the rotator cuff of left shoulder, initial encounter (principal); M19.012 Primary osteoarthritis, left shoulder

== ENCOUNTER 2023-09-02 11:03 | Emergency (ER) | payer MEDICARE, OTHER ==
[2023-09-02 11:34] VITALS: BP 109/72; O2SAT 98
--- NOTE | 2023-09-02 12:02 | XRAY Report ---
PROCEDURE: Ribs w/PA Chest LT INDICATIONS: pain after fall TECHNIQUE: 3 views of the left ribs were acquired, along with a single view chest. COMPARISON: None. FINDINGS: Surgical changes and devices: None. Bones and chest wall: No fractures or dislocations. No suspicious bony lesions. Overlying soft tis sues appear unremarkable. Lungs and pleura: No pleural effusions or pneumothorax. Lungs appear clear. Mediastinum: Mediastinal contours appear normal. Heart size is normal. IMPRESSION: No visualized acute fracture or dislocation. However, occult injury cannot be excluded. Recommend mehul rt interval imaging follow-up in 7-10 days as clinically indicated for additional evaluation. Reviewed by: Heidy Burgess MD on 09/02/2023 12:01 PM PST Approved by: Heidy Burgess MD on 09/02/2023 12:[address] [facility] Station ID: [id number]
== END 2023-09-02 13:39 | disposition left against medical advice (07) ==
LOC: ED 11:03
DX: Z53.21 Procedure and treatment not carried out due to patient leaving prior to being seen by health care provider (principal)

== ENCOUNTER 2023-09-03 05:11 | Emergency (ER) | payer MEDICARE, OTHER ==
[2023-09-03 05:32] VITALS: O2SAT 95
--- NOTE | 2023-09-03 05:46 | ED Physician Documentation ---
PD HPI Fall - Stated complaint Stated Complaint: XRAY RESULTS/CHEST INJURY - Chief complaint Chief Complaint: General - History obtained from History obtained from: Patient - History of Present Illness Mechanism of injury: Slipped - Additional information Additional information: HPI from patient. Patient c/o left lower anterolateral chest wall pain and tenderness, sudden onset when he slipped and fell while walking outdoors yesterday morning. Denies any other injury; denies head injury, neck injury. Denies dyspnea, cough. Pain is exacerbated with palpation. Patient was registered as ED patient yesterday, had cxr with left ribs xrays but left before being evaluated by emergency care provider. He says he is returning to find out the results of the xrays. Review of Systems Cardiac: reports: Chest pain / pressure Respiratory: denies: Dyspnea, Cough, Hemoptysis GI: denies: Abdominal Pain PD PAST MEDICAL HISTORY - Past Medical History Past Medical History: Yes Cardiovascular: Hypertension, High cholesterol Respiratory: None Neuro: None, Peripheral neuropathy Endocrine/Autoimmune: Type 2 diabetes GI: Colon polyps : Benign prostate hypertrophy, Frequency, Kidney stones HEENT: Chronic vision loss, Other Psych: None Musculoskeletal: Gout Derm: None - Past Surgical History Past Surgical History: Yes General: Cholecystectomy, Colonoscopy Ortho: Rotator cuff repair - Present Medications Home Medications: Ambulatory Orders Medication Instructions Recorded Confirmed Atorvastatin [Lipitor] 80 mg PO DAILY 12/17/15 09/03/23 Finasteride 5 mg PO DAILY 12/17/15 09/03/23 lisinopriL [Prinivil] 10 mg PO DAILY 12/17/15 09/03/23 metFORMIN [Glucophage] 1,000 mg PO BIDWM 12/17/15 09/03/23 Insulin Glargine [Lantus Solostar] 50 units SUBQ DAILY PM 10/16/19 09/03/23 Gabapentin [Neurontin] 600 mg PO DAILY 08/24/21 09/03/23 Semaglutide [Ozempic] 0.5 mg SUBQ 09/03/23 - Allergies Allergies/Adverse Reactions: Allergies Allergy/AdvReac Type Severity Reaction Status Date / Time No Known Drug Allergies Allergy Verified 09/03/23 05:26 - Social History Does the pt smoke?: No Smoking Status: Never smoker Does the pt drink ETOH?: No Does the pt have substance abuse?: No - Immunizations Immunizations are current?: Yes - POLST Patient has POLST: No PD ED PE NORMAL - Vitals Vital signs reviewed: Yes - General General: Alert and oriented X 3, No acute distress, Well developed/nourished - Cardiac Cardiac: RRR, No murmur - Respiratory Respiratory: No respiratory distress, Clear bilaterally - Abdomen Abdomen: Soft, Non tender, Non distended PD ED PE EXPANDED - Visual Whole body visual: 1 - tenderness (TTP without crepitus; no echymosis, no abrasions, no gross deformity. abdomen is NT) Results - Vitals Vitals: Oxygen O2 Source Room air PD Medical Decision Making - ED course Complexity details: reviewed results, considered differential, d/w patient ED course: Xrays performed yesterday (CXR with left ribs) interpreted by radiologist as no evidence of acute injury or abnormality. I reviewed results with patient. I performed bedside US focussed on LUQ and there is no evidence of fluid within the splenorenal interface. He declines pain medication. Return precautions reviewed. Departure - Departure Disposition: 01 Home, Self Care Clinical Impression: Chest wall contusion Qualifiers: Encounter type: initial encounter Laterality: left Qualified Code(s): S20.212A - Contusion of left front wall of thorax, initial encounter Condition: Good Instructions: ED Contusion Chest Wall Forms: PCP List Discharge Date/Time: 09/03/23 06:17
[2023-09-03 06:18] VITALS: BP 112/80
== END 2023-09-03 06:17 | disposition home or self-care (01) ==
LOC: ED 05:11
DX: S20.212A Contusion of left front wall of thorax, initial encounter (principal); W01.0XXA Fall on same level from slipping, tripping and stumbling without subsequent striking against object, initial encounter; Y93.01 Activity, walking, marching and hiking; I10 Essential (primary) hypertension; E11.9 Type 2 diabetes mellitus without complications; Z79.84 Long term (current) use of oral hypoglycemic drugs; Z79.4 Long term (current) use of insulin
CPT/HCPCS: 99281; 99282

== ENCOUNTER 2023-10-01 10:16 | Outpatient (CLI) | payer MEDICARE, OTHER ==
--- NOTE | 2023-10-01 17:44 | XRAY Report ---
PROCEDURE: Foot 3+V RT INDICATIONS: FOOT PAIN TECHNIQUE: 3 views of the foot were acquired. COMPARISON: None. FINDINGS: Bones: No fractures or dislocations. No suspicious bony lesions. Mild first MTP joint space narrowi ng. Soft tissues: No suspicious soft tissue calcifications or masses. Tiny plantar calcaneal enthesophyt e. IMPRESSION: 1.No acute bony abnormality. 2.Mild first MTP joint space narrowing. Reviewed by: Herminia Chaudhry MD on 10/01/2023 5:43 PM PST Approved by: Herminia Chaudhry MD on 10/01/2023 5:43 PM PST Station ID: [id number]
== END 2023-10-01 10:17 | disposition home or self-care (01) ==
LOC: DI 10:16
PROVIDERS: ATTEND Nurse Practitioner Family
DX: M19.071 Primary osteoarthritis, right ankle and foot (principal)

== ENCOUNTER 2024-01-09 21:37 | Emergency (ER) | payer MEDICARE, OTHER ==
--- NOTE | 2024-01-09 23:04 | ED Physician Documentation ---
History of Present Illness - Stated complaint Stated Complaint: RT FOOT PX - Chief complaint Chief Complaint: Ext Problem - Additonal information Additional information: Patient 68-year-old male presenting to the emergency department with foot and leg swelling. Right-sided foot and leg swelling getting progressively worse for the last few days. Denies falls or trauma. Does report history of gouty arthritis but denies pain that isolates to a specific joint space. States has had lower extremity swelling in the past but never this severe. Review of Systems Constitutional: denies: Fever Eyes: denies: Loss of vision Ears: denies: Loss of hearing Nose: denies: Rhinorrhea / runny nose Throat: denies: Dental pain / toothache Cardiac: denies: Chest pain / pressure Respiratory: denies: Dyspnea GI: denies: Abdominal Pain PD PAST MEDICAL HISTORY - Past Medical History Cardiovascular: Hypertension, High cholesterol Respiratory: None Neuro: None, Peripheral neuropathy Endocrine/Autoimmune: Type 2 diabetes GI: Colon polyps : Benign prostate hypertrophy, Frequency, Kidney stones HEENT: Chronic vision loss, Other Psych: None Musculoskeletal: Gout Derm: None - Past Surgical History Past Surgical History: Yes General: Cholecystectomy, Colonoscopy Ortho: Rotator cuff repair - Present Medications Home Medications: Ambulatory Orders Medication Instructions Recorded Confirmed Atorvastatin [Lipitor] 80 mg PO DAILY 12/17/15 01/09/24 Finasteride 5 mg PO DAILY 12/17/15 01/09/24 lisinopriL [Prinivil] 10 mg PO DAILY 12/17/15 01/09/24 metFORMIN [Glucophage] 1,000 mg PO BIDWM 12/17/15 01/09/24 Insulin Glargine [Lantus Solostar] 45 units SUBQ DAILY PM 10/16/19 01/09/24 Gabapentin [Neurontin] 600 mg PO DAILY 08/24/21 01/09/24 Semaglutide [Ozempic] 0.5 mg SUBQ .WEEKLY 09/03/23 01/09/24 Compression Socks, Large 1 each MC DAILY #1 each 01/09/24 [Lifestylecomfort Socks] Empagliflozin [Jardiance] 25 mg PO DAILY 01/09/24 01/09/24 Omeprazole 20 mg PO DAILY 01/09/24 01/09/24 - Allergies Allergies/Adverse Reactions: Allergies Allergy/AdvReac Type Severity Reaction Status Date / Time No Known Drug Allergies Allergy Verified 01/09/24 21:59 - Social History Does the pt smoke?: No Smoking Status: Never smoker Does the pt drink ETOH?: No Does the pt have substance abuse?: No - Immunizations Immunizations are current?: Yes - POLST Patient has POLST: No PD ED PE NORMAL - General General: Alert and oriented X 3, No acute distress, Well developed/nourished - HEENT HEENT: Atraumatic - Respiratory Respiratory: No respiratory distress - Extremities Extremities: Other (Notable pitting edema to the dorsum of the right foot. PT and DP pulses easily palpable. Normal capillary refill. Some varicosities noted. Normal range of motion at all joints.) Results - Vitals Vitals: Vital Signs - 24 hr 01/09/24 21:51 Temperature 36.2 C L Heart Rate 96 Respiratory 15 Rate Blood Pressure 128/90 H O2 Saturation 97 Oxygen O2 Source Room air PD Medical Decision Making - ED course Complexity details: reviewed results, d/w patient ED course: Patient 68-year-old male presenting with right foot swelling. Initial differential diagnosis included but not limited renal insufficiency, venous or arterial insufficiency, trauma, gouty arthritis. Symptoms ongoing x 2-3 days. No reported history of trauma. Patient has full and complete range of motion at all joint spaces and his discomfort does not seem to isolate to a single notable joint. There is no indication septic joint or crystal arthropathy at this time. He has easily palpable pulses. His lower extremities do have torturous veins with some notable varicosities consistent with venous insufficiency. Testing for DVT negative here in the emergency department. Will discharge with prescription for compression stockings and instructions for elevation. Patient has follow-up with podiatry in 48 hours. Return precautions given. Departure - Departure Disposition: 01 Home, Self Care Clinical Impression: Foot swelling Instructions: Chronic Venous Insufficiency, ED Leg Swelling Unilateral Prescriptions: Compression Socks, Large [Lifestylecomfort Socks] 1 each DAILY #1 each Comments: Thank you for allowing us to care for you today at [facility]. The ultrasound today did not show any blood clot in the lower extremity. As we discussed did like you to begin using her compression stocking and keeping the extremity elevated is much as possible. Please keep your follow-up appointment with podiatry in the next few days. If it anytime you develop new or worsening symptoms please not hesitate to return. Prescription for compression stockings sent to [facility] pharmacy.
[2024-01-09 23:28] VITALS: BP 130/88; O2SAT 99
--- NOTE | 2024-01-10 00:20 | Ultrasound Report ---
PROCEDURE: Duplex Ext Veins Right INDICATIONS: pain and swelling TECHNIQUE: Real-time imaging, as well as color and pulse Doppler interrogation, were performed of the lower extr emity deep veins from the inguinal ligament to the popliteal fossa. Attempted visualization of the ca lf veins was performed. COMPARISON: None. FINDINGS: The deep veins are normally compressible, and free of intraluminal thrombus. Color and pu lse Doppler demonstrate normal phasic intraluminal flow. There is normal augmentation response to di stal compression maneuver. IMPRESSION: No deep venous thrombosis of the visualized lower extremity. Reviewed by: Geovanna Quinn MD on 01/10/2024 12:18 AM PDT Approved by: Geovanna Quinn MD on 01/10/2024 12:18 AM PDT Station ID: [id number]
== END 2024-01-09 23:15 | disposition home or self-care (01) ==
LOC: ED 21:37
DX: M79.671 Pain in right foot (principal); R22.41 Localized swelling, mass and lump, right lower limb; I10 Essential (primary) hypertension; E11.42 Type 2 diabetes mellitus with diabetic polyneuropathy; Z79.4 Long term (current) use of insulin; Z79.84 Long term (current) use of oral hypoglycemic drugs
CPT/HCPCS: 99283; 99284